=== PATIENT | female | born 1990 | race Caucasian/White ===

== ENCOUNTER → 2020-03-15 10:18 | Outpatient (CLI) | payer MEDICAID, SELFPAY | PROVIDERS: PCP Family Medicine; Visit Provider Nurse Practitioner Family | DX: Z03.818 Encounter for observation for suspected exposure to other biological agents ruled out (principal) | CPT/HCPCS: U0003 ==

== ENCOUNTER 2020-09-22 10:10 | Emergency (ER) | payer MEDICAID, SELFPAY ==
[2020-09-22 10:11] VITALS: BP 162/89; PULSE 98; RESP 16; TEMP 37.1; O2SAT 98; BMI 26.6
--- NOTE | 2020-09-22 10:40 | HMH.EDUTC ---
[facility] [place] Disposition Clinical Impression: Bronchitis Disposition: Home, Self-Care Condition on Discharge: Good Instructions: DI for Acute Bronchitis Additional Instructions: Return to clinic or f/u with PCP if not improving Prescriptions: Brompheniramine/Pseudoephed/Dm [Bromfed DM Cough Syrup 5mL] 5 ml PO Q4HP PRN 10 Days #180 ml PRN Reason: Cough Transmission Status: Pending to [place] [id number] predniSONE [Prednisone 20mg Tab] 20 mg PO BID 5 Days #10 tab Transmission Status: Pending to [place] [address] Albuterol Sulfate [Proair Hfa] 2 puffs IH Q4HP PRN 10 Days #1 hfa.[email or web address] PRN Reason: Wheezing Transmission Status: Pending to [place] [address] Azithromycin [Z-Bob 250mg Tab] 250 mg PO DIRECTED #6 tab Transmission Status: Pending to [place] [address] Referrals: Marciano Webb MD [Primary Care Provider] - Forms: Work/School Release Time of Disposition: 10:45 Medical Decision Making - Reg Inquiry Pt receiving controlled substance: No Vital Signs: 09/22/20 10:11 Temperature 98.7 F Temperature Source Oral Pulse Rate [Right] 98 H Respiratory Rate 16 Blood Pressure [Right Arm] 162/89 H Blood Pressure Mean [Right Arm] 113 Blood Pressure Source [Right Arm] Automatic Cuff Blood Pressure Position [Right Arm] Sitting 02 Sat by Pulse Oximetry 98 Oxygen Delivery Method Room Air Orders (Tests/Meds): ORDERS Category Date Time Status Covid-19 Nasal PCR ([facility]) Routine Lab 09/22/20 10:35 Ordered [facility] [place] HPI - General Stated complaint: cough, sore throat, soa Time Seen by Provider: 09/22/20 10:40 Mode of Arrival: Ambulatory Source of Information: Patient Limitations: No Limitations Description of Symptoms (Recalled from Triage Doc. by RN): cough, runny nose for the past two days HEENT Symptoms (Recalled from RN notes): Yes (cough, sore throat) Resp Symptoms (Recalled from RN notes): No Skin Symptoms (Recalled from RN notes): No MS Symptoms (Recalled from RN notes): No Functional Status (Recalled from RN notes): na - History of Present Illness Provider Complaint: Cough and congestion X 2 days. No fever. Denies ear pain or sore throat. Denies nausea or vomiting. Has had loose stools. Cough is productive. Does not smoke. Daughter has similar symptoms. No loss of taste or smell. No known exposure to COVID19. Onset (ago): day(s) (2) Location: chest Consistency: constant Relieving factors: none Exacerbating factors: none Associated symptoms: denies other symptoms, cough, malaise Treatments prior to arrival: none - Related Data Previous Rx's Medication Instructions Recorded Albuterol Sulfate [Proair Hfa] 2 puffs IH Q4HP PRN 10 Days #1 09/22/20 hfa.aer.ad Azithromycin [Z-Bob 250mg Tab] 250 mg PO DIRECTED #6 tab 09/22/20 Brompheniramine/Pseudoephed/Dm 5 ml PO Q4HP PRN 10 Days #180 ml 09/22/20 [Bromfed DM Cough Syrup 5mL] predniSONE [Prednisone 20mg 20 mg PO BID 5 Days #10 tab 09/22/20 Tab] Allergies Allergy/AdvReac Type Severity Reaction Status Date / Time No Known Allergies Allergy Verified 09/22/20 10:30 - Worker's Comp Is this a Worker's Comp case?: No [facility] History - Hepatitis A Screen Drug use history?: No High risk sexual behaviors?: No History of sexually transmitted infection?: No Currently employed?: No Childcare worker?: No Do you have indoor plumbing?: Yes Do you have electricity?: Yes Attestation statement:: This patient has been screened for Hepatitis A risk factors. I have reviewed the patient's past medical history: Yes ROS Obtained: Yes All systems reviewed & no additional complaints - Constitutional Constitutional: Reports malaise - ENT Ears, Nose, Mouth, and Throat: Reports nasal congestion, Reports sore throat - Respiratory Respiratory: Reports dyspnea, Reports pain with cough, Reports cough with sputum production - Gastrointestinal Gastrointestingal: Reports: loose stools Physical Exam - Ge
[2020-09-22 11:00] VITALS: BP 130/70; PULSE 70; RESP 16; TEMP 36.8; O2SAT 98
== END 2020-09-22 11:01 | disposition home or self-care (01) ==
PROVIDERS: Emergency Provider Physician Assistant; PCP Family Medicine
DX: Z20.822 Contact with and (suspected) exposure to COVID-19 (principal); J20.9 Acute bronchitis, unspecified; F17.210 Nicotine dependence, cigarettes, uncomplicated
CPT/HCPCS: 99202; G0463; U0003

== ENCOUNTER → 2020-10-05 15:17 | Outpatient (CLI) | payer MEDICAID, SELFPAY ==
[2020-10-05 15:39] LABS: Basophils # 0.1 K/mm3 (0-0.2); Basophils % 0.6 % (0.1-2.0); Eosinophils # 0.1 K/mm3 (0.0-0.4); Eosinophils % 0.7 % (0.1-12.0); Hematocrit 42.1 % (37.0-47.0); Hemoglobin 14.6 g/dL (12.2-16.2); Lymphocytes # 2.8 K/mm3 (0.7-4.5); Lymphocytes % 37.6 % (10-50); Mean Corpuscular HGB Conc 34.7 g/dL (31.8-35.4); Mean Corpuscular Hemoglobin 32.4 pg (27.0-31.2); Mean Corpuscular Volume 93.3 fl (81-99); Mean Platelet Volume 8.8 fl (7.4-10.4); Monocytes # 0.3 K/mm3 (0.1-1.0); Monocytes % 4.6 % (1.7-9.3); Neutrophils # 4.2 K/mm3 (1.8-7.8); Neutrophils % 56.5 % (37.0-80.0); Platelet Count 199 K/mm3 (142-424); Red Blood Count 4.52 M/mm3 (4.20-5.40); Red Cell Distribution Width 12.6 % (11.5-17.5); White Blood Count 7.4 K/mm3 (4.8-10.8)
[2020-10-05 16:19] LABS: Alanine Aminotransferase 20 U/L (12-78); Albumin Level 4.6 g/dl (3.5-5.0); Albumin/Globulin Ratio 1.8 (1.1-1.8); Alkaline Phosphatase 66 U/L (38-126); Anion Gap 12.1 mEq/L (5-15); Aspartate Amino Transferase 25 U/L (14-36); Bilirubin,Total 0.5 mg/dl (0.2-1.3); Blood Urea Nitrogen 7 mg/dl (7-17); Calcium 9.2 mg/dl (8.4-10.2); Carbon Dioxide 25 mmol/L (22.0-30.0); Chloride 108 mmol/L (98-107); Estimated Glomerular Filt Rate 99 ml/min (>60); GFR (African American) 120 ML/MIN (>60); Globulin 2.6 g/dL (1.3-3.2); Glucose 100 mg/dl (74-100); Potassium 4.1 mmoL/L (3.5-5.1); Sodium 141 mmol/L (136-145); Total Protein,Serum 7.2 g/dl (6.3-8.2)
[2020-10-05 16:34] LABS: Free T4 (Free Thyroxine) 1.72 ng/dl (0.78-2.19)
[2020-10-05 16:49] LABS: Thyroid Stimulating Hormone 1.51 uIU/mL (0.465-4.68)
== END ==
PROVIDERS: Visit Provider Nurse Practitioner Family
DX: E03.9 Hypothyroidism, unspecified (principal)
CPT/HCPCS: 36415; 80053; 84439; 84443; 85025

== ENCOUNTER 2021-01-04 16:26 | Emergency (ER) | payer OTHER, SELFPAY ==
[2021-01-04 16:30] VITALS: BP 143/75; PULSE 71; RESP 20; TEMP 36.9; O2SAT 100; BMI 26.6
[2021-01-04 16:34] VITALS: BMI 26.6
--- NOTE | 2021-01-04 16:34 | XR_ITS ---
PROCEDURE: XR HAND LT MIN 3V CLINICAL INDICATION: INJURY/WC Pain COMPARISON: No exams were available for comparison FINDINGS: No fracture or dislocation. No lytic or blastic change. There is normal mineralization. The joint spaces are well-preserved. No significant degenerative/arthritic changes. No erosive changes evident. Other findings:None. IMPRESSION: No acute findings. Dictated by: Pancho Mercedes MD 01/04/2021 17:25 Pancho Mercedes MD in [place] 01/04/2021 17:25
[2021-01-04 16:55] VITALS: BP 143/75; PULSE 71; RESP 20; TEMP 36.9; O2SAT 100
--- NOTE | 2021-01-04 17:45 | HMH.EDUTC ---
[facility] [place] Clinical Impression: Right hand pain Sprain of right hand Qualifiers: Encounter type: initial encounter Qualified Code(s): S63.91XA - Sprain of unspecified part of right wrist and hand, initial encounter Fall Qualifiers: Encounter type: initial encounter Qualified Code(s): W19.XXXA - Unspecified fall, initial encounter Facial contusion Qualifiers: Encounter type: initial encounter Qualified Code(s): S00.83XA - Contusion of other part of head, initial encounter Disposition: Home, Self-Care Condition on Discharge: Good Instructions: DI for Hand Injury Additional Instructions: Rest the extremity, apply ice for 15 minutes as tolerated three or four times per day, Elevate the extremity as tolerated while you are resting. Take ibuprofen for pain. I sent in a prescription to your pharmacy. Follow up with Dr. Evans (orthopedics). Sometimes there can be fractures that don't show up well on the first set of x-rays. So, you should follow up if you continue to have symptoms. I put in a referral but you need to call his office and schedule an appointment. Follow up with your regular doctor. GO TO THE ER FOR ANY WORSENING SYMPTOMS Prescriptions: Ibuprofen [Ibuprofen 600mg Tablet] 600 mg PO Q6HP PRN #30 tab PRN Reason: Mild Pain Transmission Status: Received by [facility] #[id number] Referrals: Maritza Lee APRN [Primary Care Provider] - Mian Evans MD [Staff Physician] - Time of Disposition: 17:55 Medical Decision Making - Medical Records Medical records reviewed: No: I reviewed the patient's medical records. - Reg Inquiry Pt receiving controlled substance: No Vital Signs: 01/04/21 16:30 01/04/21 16:55 Temperature 98.5 F 98.5 F Temperature Source Oral Pulse Rate 71 Pulse Rate [Right Brachial] 71 Respiratory Rate 20 20 Blood Pressure 143/75 H Blood Pressure [Right Arm] 143/75 H Blood Pressure Mean [Right Arm] 97 Blood Pressure Source [Right Arm] Automatic Cuff Blood Pressure Position [Right Arm] Sitting 02 Sat by Pulse Oximetry 100 Oxygen Delivery Method Room Air - Radiology Data #1 Image(s): Hand Image Reviewed: Yes I reviewed the patient's radiology image, Yes I have reviewed radiologist's interpretation Preliminary Findings: Normal/NAD, No Fracture Seen PROCEDURE: XR HAND LT MIN 3V CLINICAL INDICATION: INJURY/WC Pain COMPARISON: No exams were available for comparison FINDINGS: No fracture or dislocation. No lytic or blastic change. There is normal mineralization. The joint spaces are well-preserved. No significant degenerative/arthritic changes. No erosive changes evident. Other findings:None. IMPRESSION: No acute findings. Dictated by: Pancho Mercedes MD 01/04/2021 17:25 Pancho Mercedes MD in [place] 01/04/2021 17:25 [facility] [place] - General Stated complaint: WC 01/14@1300 left hand injury Time Seen by Provider: 01/04/21 17:46 Mode of Arrival: Ambulatory Source of Information: Patient Limitations: No Limitations Description of Symptoms (Recalled from Triage Doc. by RN): PATIENT STATES SHE WAS AT WORK TODAY WHEN SHE FELL AND LANDED ON LEFT HAND. C/O PAIN AND DECREASED ROM HEENT Symptoms (Recalled from RN notes): No Resp Symptoms (Recalled from RN notes): No Skin Symptoms (Recalled from RN notes): No MS Symptoms (Recalled from RN notes): Yes Functional Status (Recalled from RN notes): WNL - History of Present Illness Provider Complaint: She states that she was at work today and she tripped and fell. She came down on her left hand. She also hit the left side of her face on the ground. She denies any facial or head pain. She does have left hand pain that is worse when she bends her 4th and 5th finger. - Related Data Home Medications Medication Instructions Recorded Confirmed Fluoxetine HCl [Prozac 20mg 20 mg PO DAILY 01/04/21 01/04/21 Capsule] Levothyroxine Sodium 125 mcg PO DAILY 01/04/21 08
== END 2021-01-04 18:01 | disposition home or self-care (01) ==
PROVIDERS: Emergency Provider Nurse Practitioner Family; PCP Nurse Practitioner Family
DX: S63.92XA Sprain of unspecified part of left wrist and hand, initial encounter (principal); S00.83XA Contusion of other part of head, initial encounter; W01.0XXA Fall on same level from slipping, tripping and stumbling without subsequent striking against object, initial encounter; Y92.69 Other specified industrial and construction area as the place of occurrence of the external cause; Y99.0 Civilian activity done for income or pay
CPT/HCPCS: 73130; 99202; G0463

== ENCOUNTER → 2021-03-14 16:10 | Outpatient (CLI) | payer MEDICAID, SELFPAY ==
[2021-03-14 17:43] LABS: HCG,Quantitative 10595 mIU/ml (0-5.42)
== END ==
PROVIDERS: Visit Provider Obstetrics & Gynecology
DX: Z32.01 Encounter for pregnancy test, result positive (principal)
CPT/HCPCS: 36415; 84702

== ENCOUNTER → 2021-03-16 15:04 | Outpatient (CLI) | payer MEDICAID, SELFPAY ==
[2021-03-16 17:04] LABS: HCG,Quantitative 14672 mIU/ml (0-5.42)
== END ==
PROVIDERS: Visit Provider Obstetrics & Gynecology
DX: Z32.01 Encounter for pregnancy test, result positive (principal)
CPT/HCPCS: 36415; 84702

== ENCOUNTER → 2021-03-28 12:53 | Outpatient (CLI) | payer MEDICAID, SELFPAY ==
--- NOTE | 2021-03-28 12:53 | US_ITS ---
PROCEDURE: US OB <= 14 WEEKS FETUS CLINICAL INDICATION: Dates COMPARISON: No exams were available for comparison FINDINGS: An intrauterine gestational sac is present with a pole with a crown-rump length of 1.45cm correlating to gestational age of 7weeks 6days. heart tones are present with an FHR of 153bpm. Yolk sac is noted. IMPRESSION: Live IUP at 7 weeks 6 days. Estimated due date by Ultrasound is 11/08/2021 Dictated by: Pancho Mercedes MD 04/02/2021 07:58 Pancho Mercedes MD in [place] 04/02/2021 07:58
== END ==
PROVIDERS: PCP Nurse Practitioner Family; Visit Provider Obstetrics & Gynecology
DX: Z34.90 Encounter for supervision of normal pregnancy, unspecified, unspecified trimester (principal)
CPT/HCPCS: 76801

== ENCOUNTER → 2021-04-24 15:54 | Outpatient (CLI) | payer MEDICAID, SELFPAY ==
[2021-04-24 16:47] LABS: Basophils % 0.5 % (0.1-2.0); Eosinophils % 0.2 % (0.1-12.0); Hematocrit 37.2 % (37.0-47.0); Hemoglobin 13.1 g/dL (12.2-16.2); Lymphocytes # 2.4 K/mm3 (0.7-4.5); Lymphocytes % 36.1 % (10-50); Mean Corpuscular HGB Conc 35.3 g/dL (31.8-35.4); Mean Corpuscular Hemoglobin 33.5 pg (27.0-31.2); Mean Corpuscular Volume 94.8 fl (81-99); Mean Platelet Volume 9.2 fl (7.4-10.4); Monocytes # 0.3 K/mm3 (0.1-1.0); Monocytes % 4.3 % (1.7-9.3); Neutrophils # 3.8 K/mm3 (1.8-7.8); Neutrophils % 58.9 % (37.0-80.0); Platelet Count 237 K/mm3 (142-424); Red Blood Count 3.92 M/mm3 (4.20-5.40); Red Cell Distribution Width 12.6 % (11.5-17.5); White Blood Count 6.5 K/mm3 (4.8-10.8)
[2021-04-26 07:01] LABS: HIV Screen 4th Generation wRfx Non Reactive (Non Reactive); Hepatitis B Surface Antigen Negative (Negative); Hepatitis C Antibody <0.1 s/co ratio (0.0-0.9)
[2021-04-26 09:26] LABS: HSV 1 IgG, Type Spec >62.20 index (0.00-0.90); HSV 2 IgG, Type Spec <0.91 index (0.00-0.90); Rubella Antibodies, IgG 1.73 index (Immune >0.99)
[2021-04-26 10:11] LABS: Rapid Plasma Reagin Ab Titer Non Reactive (NonRea<1:1)
== END ==
PROVIDERS: Visit Provider Nurse Practitioner Obstetrics & Gynecology
DX: Z34.90 Encounter for supervision of normal pregnancy, unspecified, unspecified trimester (principal); Z3A.08 8 weeks gestation of pregnancy
CPT/HCPCS: 36415; 85025; 86592; 86695; 86703; 86762; 86790; 86850; 87340; 87380; G0432

== ENCOUNTER 2021-05-13 11:08 | Emergency (ER) | payer MEDICAID, SELFPAY ==
[2021-05-13] VITALS (8 sets, daily range): BP systolic 103–115; BP diastolic 63–74; PULSE 61–92; RESP 15–17; TEMP 36.8; O2SAT 97–100; BMI 21.9; BMI 26.6
[2021-05-13 11:38] LABS: Appearance,Urine SL CLOUDY (Clear); Bilirubin,Urine Negative (Negative); Blood, Urine Negative (Negative); Color,Urine YELLOW (Yellow); Glucose,Urine (UA) Negative (Negative); Ketones,Urine Negative (Negative); Leukocyte Esterase,Urine Negative (Negative); Microscopic, Urine URINE MICROSCOPIC (MICROSCOPIC); Nitrate,Urine Negative (Negative); Protein,Urine Negative (Negative); Specific Gravity, Urine 1.025 (1.005-1.030); Urobilinogen,Urine 0.2 EU/dl (0.2)
[2021-05-13 11:53] LABS: Chloride 107 mmol/L (98-107); Potassium 3.6 mmoL/L (3.5-5.1); Sodium 137 mmol/L (136-145)
[2021-05-13 11:54] LABS: Basophils # 0.1 K/mm3 (0-0.2); Eosinophils # 0.2 K/mm3 (0.0-0.4); Eosinophils % 2.4 % (0.1-12.0); Hemoglobin 12.9 g/dL (12.2-16.2); Lymphocytes # 2.2 K/mm3 (0.7-4.5); Lymphocytes % 24.5 % (10-50); Mean Corpuscular HGB Conc 33.1 g/dL (31.8-35.4); Mean Corpuscular Hemoglobin 33.6 pg (27.0-31.2); Mean Corpuscular Volume 101.5 fl (81-99); Mean Platelet Volume 7.8 fl (7.4-10.4); Monocytes # 0.5 K/mm3 (0.1-1.0); Monocytes % 5.2 % (1.7-9.3); Neutrophils % 66.9 % (37.0-80.0); Platelet Count 293 K/mm3 (142-424); Red Blood Count 3.85 M/mm3 (4.20-5.40); Red Cell Distribution Width 13.3 % (11.5-17.5)
[2021-05-13 11:55] LABS: Blood Urea Nitrogen 6 mg/dl (7-17); Creatinine Clearance Estimated 250 mL/min (50-200); Estimated Glomerular Filt Rate 187 ml/min (>60); GFR (African American) 227 ML/MIN (>60)
[2021-05-13 11:56] LABS: Alanine Aminotransferase 12 U/L (12-78); Albumin Level 4.2 g/dl (3.5-5.0); Albumin/Globulin Ratio 1.5 (1.1-1.8); Alkaline Phosphatase 57 U/L (38-126); Anion Gap 11.6 mEq/L (5-15); Aspartate Amino Transferase 30 U/L (14-36); Bilirubin,Total 0.3 mg/dl (0.2-1.3); Calcium 8.7 mg/dl (8.4-10.2); Carbon Dioxide 22 mmol/L (22.0-30.0); Globulin 2.8 g/dL (1.3-3.2); Glucose 85 mg/dl (74-100)
[2021-05-13 11:57] LABS: Bacteria,Urine 1+ /lpf; RBC,Urine Occasional #/hpf (0-3); WBC,Urine Occasional #/hpf (0-3)
[2021-05-13 12:13] LABS: HCG,Quantitative 13714 mIU/ml (0-5.42)
[2021-05-13 12:16] LABS: Coronavirus 19, PCR Not Detected (NotDetected); Influenza A, PCR Not Detected (NotDetected); Influenza B, PCR Not Detected (NotDetected)
--- NOTE | 2021-05-13 13:15 | HMH.EDNVD ---
ED Disposition Clinical Impression: Emesis, UTI (urinary tract infection) Disposition: Home, Self-Care Condition on Discharge: Good Instructions: Urinary Tract Infection, Hyperemesis Gravidarum, DI for Diarrhea and Traveler's Diarrhea -- Adult, DI for Diarrhea and Traveler's Diarrhea -- Child, DI for Nausea -- Adult, DI for Nausea -- Child Additional Instructions: Please follow-up with your primary care physician in 2 to 3 days for further management. You have been prescribed Keflex to take as prescribed for your urinary tract infection. Please take the promethazine as prescribed for your nausea and vomiting. Please return back to the emergency department for any concerning symptoms such as abdominal pain, inability to eat and drink or worsening nausea and vomiting. Prescriptions: cephALEXin [Keflex 750mg Cap] 750 mg PO Q12H #14 cap Transmission Status: Received by [facility] # Promethazine HCl 12.5 mg PO Q8 #30 tab Transmission Status: Received by [facility] #[id number] Referrals: Maritza Lee APRN [Primary Care Provider] - Forms: Work/School Release - Critical Care Critical Care Time: No Attestation: On 05/13/21, the high probability of a clinically significant, sudden or life threatening deterioration of the following system(s) required my full and direct attention, intervention and personal management. The time I documented below is in addition to time spent performing reported procedures but includes the following listed in this critical care notation. Medical Decision Making - Medical Records Medical records reviewed: Yes: I reviewed the patient's medical records. - Reg Inquiry Pt receiving controlled substance: No Vital Signs: 05/13/21 11:09 05/13/21 11:21 05/13/21 11:52 Temperature 98.2 F Temperature Source Oral Pulse Rate 68 74 Pulse Rate [Right Radial] 92 H Respiratory Rate 16 16 16 Blood Pressure 115/74 111/73 Blood Pressure [Right Arm] 115/74 Blood Pressure Mean 84 82 Blood Pressure Mean [Right Arm] 87 Blood Pressure Source [Right Arm] Automatic Cuff Blood Pressure Position [Right Arm] Sitting 02 Sat by Pulse Oximetry 98 97 100 Oxygen Delivery Method Room Air 05/13/21 12:00 05/13/21 12:30 05/13/21 13:00 Temperature Temperature Source Pulse Rate 61 61 68 Pulse Rate [Right Radial] Respiratory Rate 17 15 Blood Pressure 103/64 L 109/68 L 113/68 Blood Pressure [Right Arm] Blood Pressure Mean 79 82 Blood Pressure Mean [Right Arm] Blood Pressure Source [Right Arm] Blood Pressure Position [Right Arm] 02 Sat by Pulse Oximetry 100 99 100 Oxygen Delivery Method 05/13/21 13:30 05/13/21 14:05 Temperature 98.2 F Temperature Source Pulse Rate 65 65 Pulse Rate [Right Radial] Respiratory Rate 17 17 Blood Pressure 106/63 L 106/63 L Blood Pressure [Right Arm] Blood Pressure Mean 76 Blood Pressure Mean [Right Arm] Blood Pressure Source [Right Arm] Blood Pressure Position [Right Arm] 02 Sat by Pulse Oximetry 99 Oxygen Delivery Method Room Air - Lab Data Lab results reviewed: Yes: I reviewed the patient's lab results. Lab Results 05/13/21 11:20: Urine Color Yellow, Urine Appearance Sl cloudy, Urine pH 6.0, Ur Specific [place] 1.025, Urine Protein Negative, Urine Glucose (UA) Negative, Urine Ketones Negative, Urine Blood Negative, Urine Nitrate Negative, Urine Bilirubin Negative, Urine Urobilinogen 0.2, Ur Leukocyte Esterase Negative, Urine RBC Occasional, Urine WBC Occasional, Ur Squamous Epith Cells 3-5, Urine Bacteria 1+ 05/13/21 11:30: WBC 9.0, RBC 3.85 L, Hgb 12.9, Hct 39.0, MCV 101.5 H, MCH 33.6 H, MCHC 33.1, RDW 13.3, Plt Count 293, MPV 7.8, Neut % (Auto) 66.9, Lymph % (Auto) 24.5, [place] % (Auto) 5.2, Eos % (Auto) 2.4, Baso % (Auto) 1.0, Neut # (Auto) 6.0, Lymph # (Auto) 2.2, [place] # (Auto) 0.5, Eos # (Auto) 0.2, Baso # (Auto) 0.1 05/13/21 11:30: Sodium 137, Potassium 3.6, Chloride 107, Carbon Dioxide
== END 2021-05-13 14:05 | disposition home or self-care (01) ==
PROVIDERS: Emergency Provider Student in an Organized Health Care Education/Training Program; PCP Nurse Practitioner Family
DX: O23.12 Infections of bladder in pregnancy, second trimester (principal); Z3A.14 14 weeks gestation of pregnancy; O21.0 Mild hyperemesis gravidarum
CPT/HCPCS: 80053; 81001; 84702; 85025; 96365; 96375; 99283; C9803; U0003; U0005

== ENCOUNTER 2021-05-27 18:39 | Emergency (ER) | payer MEDICAID, SELFPAY ==
[2021-05-27 19:00] VITALS: BP 126/78; PULSE 79; RESP 21; TEMP 37; O2SAT 99; BMI 25.5
[2021-05-27 19:40] LABS: UTC Influenza A Antigen Negative (Negative); UTC Strep Screen (Rapid) Negative (Negative)
[2021-05-27 19:41] LABS: UTC Influenza B Antigen Negative (Negative)
--- NOTE | 2021-05-27 19:45 | HMH.EDUTC ---
[facility] [place] Disposition Clinical Impression: Upper respiratory infection, viral Disposition: Home, Self-Care Condition on Discharge: Good Instructions: DI for Viral Upper Respiratory Infection -- Adult Additional Instructions: covid swab was sent to lab, call later today for results. self isolate until test results are known to be negative No sign of a bacterial infection. Likely viral. Viruses can take 7-14 days to run their course. Nasal saline and bulb syringe or nose Kirsten to remove nasal drainage to help with nasal congestion. Hard to eat, drink, sleep with nasal congestion so important to keep this cleaned out. Monitor temp. Tylenol or Motrin as needed for pain or fever Encourage fluids, water, Gatorade, Powerade, Pedialyte if /toddler/child Warm salt water gargles Warm fluids Sore throat lozenges Sleep elevated Humidifier/vaporizer Follow-up immediately for new or worsening symptoms or no noticeable improvement over the next 48-72 hours. Referrals: Maritza Lee APRN [Primary Care Provider] - Time of Disposition: 19:47 Medical Decision Making - Reg Inquiry Pt receiving controlled substance: No Vital Signs: 05/27/21 19:00 Temperature 98.6 F Temperature Source Oral Pulse Rate [Right Brachial] 79 Respiratory Rate 21 Blood Pressure [Right Arm] 126/78 Blood Pressure Mean [Right Arm] 94 Blood Pressure Source [Right Arm] Automatic Cuff Blood Pressure Position [Right Arm] Sitting 02 Sat by Pulse Oximetry 99 Oxygen Delivery Method Room Air - Lab Data Lab Results 05/27/21 19:10: Influenza Type A Ag Negative, Influenza Type B Ag Negative 05/27/21 19:10: Strep Scn Rapid Clinic Negative Orders (Tests/Meds): ORDERS Category Date Time Status Covid-19 Nasal PCR ([facility]) Routine Lab 05/27/21 19:10 Received Strep Screen Confirmation Stat Micro 05/27/21 19:10 Received [facility] [place] HPI - General Chief complaint: Urgent [facility] Stated complaint: covid test,cough Time Seen by Provider: 05/27/21 19:45 Mode of Arrival: Ambulatory Source of Information: Patient Limitations: No Limitations Description of Symptoms (Recalled from Triage Doc. by RN): PATIENT C/O COUGH, SORE THROAT, AND HEADACHE X 3 DAYS HEENT Symptoms (Recalled from RN notes): Yes Resp Symptoms (Recalled from RN notes): Yes Skin Symptoms (Recalled from RN notes): No MS Symptoms (Recalled from RN notes): No Functional Status (Recalled from RN notes): WNL - History of Present Illness Provider Complaint: 31 yr old female presnts for cough and congestion, pt is 15 weeks - Related Data Home Medications Medication Instructions Recorded Confirmed Fluoxetine HCl [Prozac 20mg 20 mg PO DAILY 01/04/21 05/02/21 Capsule] Levothyroxine Sodium 125 mcg PO DAILY 01/04/21 05/02/21 [Levothyroxine 125mcg (0.125mg) Tab] Previous Rx's Medication Instructions Recorded Ibuprofen [Ibuprofen 600mg 600 mg PO Q6HP PRN #30 tab 01/04/21 Tablet] promethazine 12.5 mg tablet 12.5 mg PO Q4-6H PRN #30 tab 04/03/21 Promethazine HCl 12.5 mg PO Q8 #30 tab 05/13/21 cephALEXin [Keflex 750mg Cap] 750 mg PO Q12H #14 cap 05/13/21 Allergies Allergy/AdvReac Type Severity Reaction Status Date / Time No Known Allergies Allergy Verified 05/02/21 15:25 - Worker's Comp Is this a Worker's Comp case?: No [facility] History - Hepatitis A Screen Drug use history?: No High risk sexual behaviors?: No History of sexually transmitted infection?: No Currently employed?: No Childcare worker?: No Do you have indoor plumbing?: Yes Do you have electricity?: Yes Attestation statement:: This patient has been screened for Hepatitis A risk factors. I have reviewed the patient's past medical history: Yes Other Surgeries: Yes: Cholecystectomy, Thyroidectomy Amputation: No Fractures: No - Social History Smoking Status: Never smoker Alcohol Intake: never Occupational Status: other Family Hx:: No significant family histo
[2021-05-27 19:57] VITALS: BP 126/78; PULSE 79; RESP 21; TEMP 37; O2SAT 99
== END 2021-05-27 19:59 | disposition home or self-care (01) ==
PROVIDERS: Emergency Provider Nurse Practitioner Family; PCP Nurse Practitioner Family
DX: J06.9 Acute upper respiratory infection, unspecified (principal); Z3A.15 15 weeks gestation of pregnancy
CPT/HCPCS: 87804; 87880; 99203; C9803; G0463; U0003; U0005

== ENCOUNTER → 2021-06-06 15:53 | Outpatient (CLI) | payer MEDICAID, SELFPAY | PROVIDERS: Visit Provider Nurse Practitioner Obstetrics & Gynecology | DX: O28.3 Abnormal ultrasonic finding on antenatal screening of mother (principal); Z31.430 Encounter of female for testing for genetic disease carrier status for procreative management; Z36.0 Encounter for antenatal screening for chromosomal anomalies | CPT/HCPCS: 36415 ==

== ENCOUNTER → 2021-06-20 12:49 | Outpatient (CLI) | payer MEDICAID, SELFPAY ==
--- NOTE | 2021-06-20 12:50 | US_ITS ---
FINAL REPORT CLINICAL HISTORY: US OB Complete 20wk+ Anatomy Scan FINDINGS: There is a single live intrauterine gestation. Presentation is cephalic. The cervix is closed and measures 4.1 cm. Placenta is anterior. Three-vessel cord with satisfactory umbilical cord insertion. Four-chamber heart is noted. brain and ventricles are unremarkable. Chest and diaphragm are unremarkable. ABDOMEN: Both kidneys are unremarkable. Stomach is unremarkable. SPINE: No anomalies identified. Both arms and legs noted. AMNIOTIC FLUID: Appropriate amount. MEASUREMENTS: ULTRASOUND AGE: 19 weeks 6 days. GESTATION AGE: 19 weeks 6 days. ESTIMATED WEIGHT: 313 g GROWTH PERCENTILE: 41% BPD: 4.7 cm consistent with 20 weeks 2 days. OFD: 5.9 cm consistent with 20 weeks 2 days HC: 16.7 cm consistent with 19 weeks 3 days. AC: 14.5 cm consistent with 19 weeks 6 days. FL: 312 cm consistent with 19 weeks 6 days. CEREBELLUM: 1.9 cm consistent with 20 weeks 0 days. HC/AC: 1.16 CI: 80% FL/BPD: 67% FL/AC: 22% IMPRESSION: Single living IUP with an ultrasound age of 19 weeks 6 days. No anomalies noted. Reviewed, Interpreted and Dictated by Wisam Demarco III, MD Transcribed by Sihra Aguirre Authenticated by Wisam Demarco III, MD on 06/20/2021 04:57:[address] [facility]
== END ==
PROVIDERS: PCP Nurse Practitioner Family; Visit Provider Nurse Practitioner Obstetrics & Gynecology
DX: Z36.0 Encounter for antenatal screening for chromosomal anomalies (principal)
CPT/HCPCS: 76811

== ENCOUNTER → 2021-08-08 09:10 | Outpatient (CLI) | payer MEDICAID, SELFPAY ==
[2021-08-08 11:23] LABS: Glucose 1 Hour 96 mg/dL (74-100); Glucose,Fasting 80 mg/dl (74-100)
== END ==
PROVIDERS: Visit Provider Nurse Practitioner Obstetrics & Gynecology
DX: Z34.90 Encounter for supervision of normal pregnancy, unspecified, unspecified trimester (principal)
CPT/HCPCS: 36415; 82951

== ENCOUNTER → 2021-09-10 11:53 | Outpatient (CLI) | payer MEDICAID, SELFPAY ==
[2021-09-10 12:17] LABS: Basophils # 0.1 K/mm3 (0-0.2); Basophils % 2.2 % (0.1-2.0); Eosinophils % 0.4 % (0.1-12.0); Hemoglobin 10.6 g/dL (12.2-16.2); Lymphocytes # 1.8 K/mm3 (0.7-4.5); Lymphocytes % 41.5 % (10-50); Mean Corpuscular HGB Conc 34.3 g/dL (31.8-35.4); Mean Corpuscular Hemoglobin 33.7 pg (27.0-31.2); Mean Corpuscular Volume 98.2 fl (81-99); Mean Platelet Volume 9.2 fl (7.4-10.4); Monocytes # 0.3 K/mm3 (0.1-1.0); Monocytes % 5.7 % (1.7-9.3); Neutrophils # 2.2 K/mm3 (1.8-7.8); Neutrophils % 50.3 % (37.0-80.0); Platelet Count 191 K/mm3 (142-424); Red Blood Count 3.16 M/mm3 (4.20-5.40); Red Cell Distribution Width 13.9 % (11.5-17.5); White Blood Count 4.4 K/mm3 (4.8-10.8)
[2021-09-10 13:06] LABS: Free Thyroxine Index 3.2 ug/dL (5.93-13.13); T4 (Thyroxine) 17.7 ug/dl (5.53-11.0); Triiodothryronine (T3) Uptake 18 % (23.5-40.5)
[2021-09-10 13:17] LABS: Alanine Aminotransferase 23 U/L (12-78); Albumin Level 3.5 g/dl (3.5-5.0); Albumin/Globulin Ratio 1.3 (1.1-1.8); Alkaline Phosphatase 132 U/L (38-126); Anion Gap 11.7 mEq/L (5-15); Aspartate Amino Transferase 32 U/L (14-36); Bilirubin,Total 0.5 mg/dl (0.2-1.3); Blood Urea Nitrogen 4 mg/dl (7-17); Calcium 8.1 mg/dl (8.4-10.2); Carbon Dioxide 18 mmol/L (22.0-30.0); Chloride 109 mmol/L (98-107); Estimated Glomerular Filt Rate 187 ml/min (>60); GFR (African American) 227 ML/MIN (>60); Globulin 2.8 g/dL (1.3-3.2); Glucose 87 mg/dl (74-100); Potassium 3.7 mmoL/L (3.5-5.1); Sodium 135 mmol/L (136-145); Total Protein,Serum 6.3 g/dl (6.3-8.2)
[2021-09-10 13:20] LABS: Thyroid Stimulating Hormone 7.92 uIU/mL (0.465-4.68)
== END ==
PROVIDERS: Visit Provider Nurse Practitioner Obstetrics & Gynecology
DX: Z34.90 Encounter for supervision of normal pregnancy, unspecified, unspecified trimester (principal); Z3A.31 31 weeks gestation of pregnancy
CPT/HCPCS: 36415; 80053; 84436; 84443; 84479; 85025

== ENCOUNTER → 2021-09-26 11:44 | Outpatient (CLI) | payer MEDICAID, SELFPAY ==
[2021-09-26 14:02] LABS: Triiodothryronine (T3) Uptake 18 % (23.5-40.5)
[2021-09-26 14:03] LABS: Free Thyroxine Index 2.6 ug/dL (5.93-13.13); T4 (Thyroxine) 14.4 ug/dl (5.53-11.0)
== END ==
PROVIDERS: PCP Nurse Practitioner Family; Visit Provider Nurse Practitioner Obstetrics & Gynecology
DX: E05.90 Thyrotoxicosis, unspecified without thyrotoxic crisis or storm (principal); O99.280 Endocrine, nutritional and metabolic diseases complicating pregnancy, unspecified trimester
CPT/HCPCS: 36415; 84436; 84443; 84479

== ENCOUNTER → 2021-10-02 13:21 | Outpatient (CLI) | payer MEDICAID, SELFPAY ==
--- NOTE | 2021-10-02 13:23 | US_ITS ---
FINAL REPORT CLINICAL HISTORY: LGA FINDINGS: There is a single live intrauterine gestation. Presentation is breech. The cervix is closed and measures 5.84 cm. Placenta is anterior, grade 1. Cardiac activity is confirmed at 127 bpm. Fetus is active. Three-vessel cord with satisfactory umbilical cord insertion. Four-chamber heart is noted. Chest and diaphragm are unremarkable. ABDOMEN: Both kidneys are unremarkable. Stomach is unremarkable. WINSTON: 13.7 cm MEASUREMENTS: ULTRASOUND AGE: 37 weeks 1 days. GESTATION AGE: 35 weeks 1 days. ESTIMATED WEIGHT: 3098 g GROWTH PERCENTILE: 92% BPD: 9.1 cm corresponding with 37 weeks 0 days. OFD: 12 cm HC: 33.4 cm corresponding with 38 weeks 2 days. AC: 33.8 cm corresponding with 37 weeks 5 days. FL: 6.8 cm corresponding with 35 weeks 1 days. HC/AC: 0.99 CI: 76% FL/BPD: 75% FL/AC: 20% BREATHIN MOVEMENT: 2 TONE: 2 FLUID VOLUME: 2 BPP SCORE: 8 IMPRESSION: Single living IUP with an ultrasound age of 37 weeks 1 days. BPP SCORE: 8/8 Reviewed, Interpreted and Dictated by Wisam Demarco III, MD Transcribed by Rosemarie Chapman Authenticated by Wisam Demarco III, MD on 10/02/2021 02:59:[address] [facility]
== END ==
PROVIDERS: PCP Nurse Practitioner Family; Visit Provider Nurse Practitioner Obstetrics & Gynecology
DX: O36.60X0 Maternal care for excessive fetal growth, unspecified trimester, not applicable or unspecified (principal)
CPT/HCPCS: 76816; 76819

== ENCOUNTER → 2021-10-16 15:35 | Outpatient (CLI) | payer MEDICAID, SELFPAY | PROVIDERS: Visit Provider Nurse Practitioner Obstetrics & Gynecology | DX: Z34.90 Encounter for supervision of normal pregnancy, unspecified, unspecified trimester (principal) | CPT/HCPCS: 86403 ==

== ENCOUNTER → 2021-10-31 14:07 | Outpatient (CLI) | payer MEDICAID, SELFPAY ==
[2021-10-31 15:34] LABS: Alanine Aminotransferase 27 U/L (12-78); Albumin Level 3.4 g/dl (3.5-5.0); Alkaline Phosphatase 214 U/L (38-126); Aspartate Amino Transferase 43 U/L (14-36); Bilirubin,Indirect 0.6 mg/dL (0.0-0.9); Bilirubin,Total 0.6 mg/dl (0.2-1.3); Bilirubin,Unconjugated 0.6 mg/dL (0.0-1.1); Total Protein,Serum 6.2 g/dl (6.3-8.2)
== END ==
PROVIDERS: PCP Nurse Practitioner Family; Visit Provider Nurse Practitioner Obstetrics & Gynecology
DX: Z34.90 Encounter for supervision of normal pregnancy, unspecified, unspecified trimester (principal); Z3A.38 38 weeks gestation of pregnancy
CPT/HCPCS: 36415; 80076

== ENCOUNTER 2021-11-05 04:50 | Inpatient (IN) | payer MEDICAID, SELFPAY ==
[2021-11-05 04:53] VITALS: BMI 29.9
[2021-11-05 05:58] LABS: Microscopic, Urine URINE MICROSCOPIC (MICROSCOPIC)
[2021-11-05 05:58] LABS: Influenza A, PCR Not Detected (NotDetected); Influenza B, PCR Not Detected (NotDetected)
[2021-11-05 06:07] LABS: Appearance,Urine CLEAR (Clear); Bilirubin,Urine Negative (Negative); Blood, Urine Negative (Negative); Color,Urine YELLOW (Yellow); Glucose,Urine (UA) Negative (Negative); Ketones,Urine Negative (Negative); Leukocyte Esterase,Urine Negative (Negative); Nitrate,Urine Negative (Negative); Protein,Urine Negative (Negative)
[2021-11-05 06:24] LABS: Amphetamine/Metha Screen,Urine Negative ng/ml (<1000)
[2021-11-05 06:25] LABS: Barbiturates Screen,Urine Negative ng/ml (<200); Benzodiazepines Screen,Urine Negative ng/ml (<200)
[2021-11-05 06:26] LABS: Cannabinoid Screen,Urine Negative ng/ml (<50); Cocaine Screen,Urine Negative ng/ml (<300)
[2021-11-05 06:27] LABS: Methadone Screen,Urine Negative ng/ml (<300)
[2021-11-05 06:28] LABS: Bacteria,Urine 1+ /lpf; Opiate Screen,Urine Negative ng/ml (<300); Phencyclidine Screen,Urine Negative ng/ml (<25); RBC,Urine Occasional #/hpf (0-3); WBC,Urine Occasional #/hpf (0-3)
[2021-11-05 06:36] LABS: Basophils # 0.1 K/mm3 (0-0.2); Eosinophils % 0.6 % (0.1-12.0); Hematocrit 36.2 % (37.0-47.0); Lymphocytes # 1.9 K/mm3 (0.7-4.5); Lymphocytes % 37.1 % (10-50); Mean Corpuscular HGB Conc 33.3 g/dL (31.8-35.4); Mean Corpuscular Hemoglobin 32.9 pg (27.0-31.2); Mean Corpuscular Volume 98.8 fl (81-99); Monocytes # 0.3 K/mm3 (0.1-1.0); Monocytes % 5.8 % (1.7-9.3); Neutrophils # 2.8 K/mm3 (1.8-7.8); Neutrophils % 55.5 % (37.0-80.0); Platelet Count 189 K/mm3 (142-424); Red Blood Count 3.66 M/mm3 (4.20-5.40); Red Cell Distribution Width 15.3 % (11.5-17.5); White Blood Count 5.1 K/mm3 (4.8-10.8)
[2021-11-05 06:47] LABS: Coronavirus 19, PCR Detected (NotDetected)
--- NOTE | 2021-11-05 07:11 | HMH.PHAINT ---
MEDICATION RECONCILIATION COMPLETED ON PATIENT USING EXTERNAL FILL HISTORY FROM PHARMACY. -XIMENA LARSON, CHARLINED
[2021-11-05 07:53] VITALS: BP 119/70; PULSE 70; RESP 18; TEMP 36.6; O2SAT 97
[2021-11-05 08:19] VITALS: BP 119/70; PULSE 70; RESP 18; TEMP 36.6; O2SAT 97
--- NOTE | 2021-11-05 09:05 | HMH.LABNOT ---
Labor Note - Subjective: Date: 11/05/21 Time: 09:05 regular contraction - Objective: NST:: Reactive Contractions:: every 2-3 minutes Cervical Dilation:: 2 Effacement:: 50% Station: -2 Membranes: artificially ruptured Comment:: I ruptured her membranes and there was minimal clear fluid. - Fetus: Monitoring?: Yes monitoring type:: External - Assessment: Labor progressing?: Yes Cephalopelvic disproportion?: No Patient Problems: All Active Problems Emesis (Acute) UTI (urinary tract infection) (Acute) Upper respiratory infection, viral (Acute) (Acute) Bronchitis (Acute) Sprain of right hand (Acute) Fall (Acute) Facial contusion (Acute) Right hand pain (Acute) - Plan: Anesthesia for epidural?: Yes Continue to labor down?: Yes Plan for ?: No Continue to monitor?: Yes Start pushing?: No
--- NOTE | 2021-11-05 09:06 | HMH.OBAPHP ---
OB - H&P: HPI Antepartum - History of Present Illness Chief complaint: Term , previous vaginal deliveries, COVID-positive History of present illness: She is a 31-year-old 4 para 2 at 39 and 5 weeks gestational age. She had COVID a little over a week ago. She still continues to be positive but she is now asymptomatic. As result of that we have elected to induce her labor at term. - History of Present Criteria for establishing EDC:: LMP confirmed by 1st trimester US care: good care Ultrasounds: normal 1st trimester US, normal mid trimester US Obstetrical complications: none Medical complications: other - Labs Blood type: A (+) positive Rubella: immune RPR/VDRL: nonreactive GBS status: negative HBsAG: negative [facility] History I have reviewed the patient's past medical history: Yes *Have you ever received a pneumonia vaccine?: No *Have you received a flu vaccine this season?: No Other Surgeries: Yes: Cholecystectomy, Thyroidectomy. No: Amputation: No Fractures: No - *Social History Smoking Status: Never smoker Alcohol Intake: never *Occupational Status:: unemployed *Travel in the last 8 weeks: None Family Hx:: No significant family history Para: 2 Review of Systems - Review of Systems Review of systems:: pertinent systems reviewed and negative unless documented below Meds Home Medications Medication Instructions Recorded Confirmed Type Fluoxetine HCl [Prozac 20mg 20 mg PO DAILY 01/04/21 11/05/21 History Capsule] ondansetron 4 mg disintegrating 4 mg PO TIDP PRN tab 10/31/21 11/05/21 History tablet Levothyroxine Sodium 125 mcg PO DAILY 11/05/21 11/05/21 History [Levothyroxine 125mcg (0.125mg) Tab] hydrOXYzine pamoate [Vistaril] 25 mg PO QID 11/05/21 11/05/21 History Allergies Allergy/AdvReac Type Severity Reaction Status Date / Time No Known Allergies Allergy Verified 10/31/21 13:36 OB - H&P: Exam - Physical Exam Vital signs: Temp Pulse Resp BP Pulse Ox 97.8 F 70 18 119/70 97 11/05/21 08:19 11/05/21 08:19 11/05/21 08:19 11/05/21 08:19 11/05/21 08:19 - Constitutional no acute distress - Routine HEENT Exam Head: Present: normocephalic Eye: Present: EOMI, PERRL ENT: Present: mucous membranes moist - Routine Neck Exam Present: supple, full ROM - Routine Respiratory Exam Absent: accessory muscle use (good air entry bilaterally), respiratory distress, wheezes, crackles - Routine Cardiovascular Exam Present: RRR. Absent: murmur - Routine Abdominal Exam Present: soft, normoactive bowel sounds. Absent: tenderness, distended, guarding - Routine Rectal Exam Patient deferred: visual exam, digital exam - Routine Exam Patient deferred: external exam, groin exam, perineal exam - Routine Extremities Exam Present: full ROM. Absent: cyanosis, edema - Routine Skin Exam Present: intact. Absent: cyanosis - Routine Neurological Exam Present: alert, oriented X3 - Routine Psychiatric Exam Present: normal affect OB - Results - Labs Labs: Short CBC 11/05/21 Range/Units 05:25 WBC 5.1 (4.8-10.8) K/mm3 Hgb 12.0 L (12.2-16.2) g/dL Hct 36.2 L (37.0-47.0) % Plt Count 189 (142-424) K/mm3 Urine 11/05/21 Range/Units 05:15 Urine Color Yellow (Yellow) Urine Appearance Clear (Clear) Urine pH 7.0 (5.0-8.5) Ur Specific [place] 1.010 (1.005-1.030) Urine Protein Negative (Negative) Urine Glucose (UA) Negative (Negative) OB - A/P Antepartum (1) Real time reverse transcriptase PCR positive for COVID-19 virus Status: Acute (2) Normal delivery at term Status: Acute - Additional Plan Planning to breastfeed?: Yes Plan: induction Additional Information:: She is having regular contractions. I ruptured her membranes. There was minimal clear fluid.
--- NOTE | 2021-11-05 11:42 | HMH.ANESCL ---
[facility] Anesthesia Checklist - Patient Identification Patient Identification: Arm Band - Structural Data Admitted From: Home Planned Operative Procedure/s: Labor Epidural Consent for Planned Operative Procedure(s) Verified: Yes Verified Documents: Surgical Consent, History and Physical - NPO Status Verified Time NPO: 00:00 - Additional verifications Anesthesia Reactions: No - Airway Assessment C-Spine Mobility Assessed: Yes TMJ Mobility Assessed: Yes Dentition: Good Dentition - Neurological Assessment Level of Consciousness: Awake, Alert - Anesthesia Plan Anesthesia Risk discussed: Yes Anesthesia Plan: Verified ASA Class: II Anesthesia Type: Epidural [facility] History I have reviewed the patient's past medical history: Yes *Have you ever received a pneumonia vaccine?: No *Have you received a flu vaccine this season?: No Anesthesia experience/problems:: nac Other Surgeries: Yes: Cholecystectomy, Thyroidectomy. No: Amputation: No Fractures: No - *Social History Smoking Status: Never smoker Alcohol Intake: never Substance Use Type: denies use *Occupational Status:: unemployed *Travel in the last 8 weeks: None Family Hx:: No significant family history Para: 2
--- NOTE | 2021-11-05 11:55 | HMH.LABNOT ---
Labor Note - Subjective: Date: 11/05/21 Time: 11:55 regular contraction - Objective: NST:: Reactive Contractions:: every 2-3 minutes Cervical Dilation:: 3-4 Effacement:: 50% Station: -3 Membranes: artificially ruptured Comment:: Copious clear fluid - Assessment: Labor progressing?: Yes Cephalopelvic disproportion?: No Patient Problems: All Active Problems Emesis (Acute) UTI (urinary tract infection) (Acute) Upper respiratory infection, viral (Acute) Real time reverse transcriptase PCR positive for COVID-19 virus (Acute) Normal delivery at term (Acute) (Acute) Bronchitis (Acute) Sprain of right hand (Acute) Fall (Acute) Facial contusion (Acute) Right hand pain (Acute) - Plan: Anesthesia for epidural?: Yes Continue to labor down?: Yes Plan for ?: No Continue to monitor?: Yes Start pushing?: No Comment:: She just got her epidural. She is a good 3 to 4 cm. Baby's head is still a little high. We will see how she does over the next few hours.
[2021-11-05 12:00] VITALS: BP 116/75; PULSE 72; RESP 19; TEMP 36.5; O2SAT 100
--- NOTE | 2021-11-05 14:10 | HMH.LABNOT ---
Labor Note - Subjective: Date: 11/05/21 Time: 13:45 regular contraction - Objective: NST:: Reactive Contractions:: every 2-3 minutes Cervical Dilation:: 4 Effacement:: 75% Station: -1 Membranes: artificially ruptured - Fetus: Monitoring?: Yes monitoring type:: External - Assessment: Labor progressing?: Yes Cephalopelvic disproportion?: No Patient Problems: All Active Problems Emesis (Acute) UTI (urinary tract infection) (Acute) Upper respiratory infection, viral (Acute) Real time reverse transcriptase PCR positive for COVID-19 virus (Acute) Normal delivery at term (Acute) (Acute) Bronchitis (Acute) Sprain of right hand (Acute) Fall (Acute) Facial contusion (Acute) Right hand pain (Acute) - Plan: Anesthesia for epidural?: Yes Continue to labor down?: Yes Plan for ?: No Continue to monitor?: Yes Start pushing?: No Additional information:: She continues to do well. She is progressing. The cervix has significantly thinned out and the baby's head has come down more. She is comfortable with her epidural. We will continue to await a vaginal delivery.
[2021-11-05 16:00] VITALS: BP 118/61; PULSE 63; RESP 19; TEMP 36.7; O2SAT 100
--- NOTE | 2021-11-05 17:12 | HMH.LABNOT ---
Labor Note - Subjective: Date: 11/05/21 Time: 17:12 regular contraction - Objective: NST:: Reactive Contractions:: every 2-3 minutes Cervical Dilation:: 7 Effacement:: 100% Station: 0 Membranes: artificially ruptured - Fetus: Monitoring?: Yes monitoring type:: External - Assessment: Labor progressing?: Yes Cephalopelvic disproportion?: No Patient Problems: All Active Problems Emesis (Acute) UTI (urinary tract infection) (Acute) Upper respiratory infection, viral (Acute) Real time reverse transcriptase PCR positive for COVID-19 virus (Acute) Normal delivery at term (Acute) (Acute) Bronchitis (Acute) Sprain of right hand (Acute) Fall (Acute) Facial contusion (Acute) Right hand pain (Acute) - Plan: Anesthesia for epidural?: Yes Continue to labor down?: Yes Plan for ?: No Continue to monitor?: Yes Start pushing?: No
--- NOTE | 2021-11-05 19:25 | HMH.DN ---
- Delivery Note Delivery Date:: 11/05/21 Delivery Time:: 19:15 Anesthesia Type: Epidural Was labor medically induced?: Yes Induction method: per pitocin protocol Gestational age (weeks): 39 Infant delivered prior to 39 weeks?: No Infant Gender: Male at 1 minute: 8 at 5 minutes: 9 Delivery Procedure:: She is a 31-year-old 4 para 2 aborta 1 at 39+ weeks gestational age. She elected to have induction of labor at 39 weeks. She was started on IV oxytocin and had her membranes ruptured. Under labor epidural she progressed to full dilation and delivered with the assistance of a vacuum a liveborn male child at 7:15 PM in the evening of November 05, 2021. She had pushed for a number of pushes and she was getting fatigued. The baby's head was not descending beyond the prominent tailbone. As result of that I applied a vacuum at station +3 to +4 and with 1 gentle pull I was able to deliver the head. On deliver the head it was noted that there was a tight nuchal cord. I was able to reduce this and then the anterior shoulder and the rest the infant's body delivered atraumatically. The baby was vigorous and cried spontaneously. The oropharynx and nasopharynx were bulb suction. We allowed the cord to continue to pulsate for approximately 1 minute. The cord was then doubly clamped and cut and the was handed off to Dr. Olea who assigned Apgars of 8 at 1 minute and 9 at 5 minutes. We then obtained cord blood. She received IV oxytocin and using gentle traction on the cord and countertraction the fundus I was able to easily deliver the placenta intact at 7:18 PM. He had a normal three-vessel cord. There were no perineal or vaginal lacerations. She has a positive blood, she is rubella immune and was group B streptococcus negative. She plans to breast-feed. Her estimated blood loss was 250 cc. Placental Delivery Description: Spontaneous
[2021-11-05 20:00] VITALS: BP 116/73; PULSE 85; RESP 18; TEMP 36.8; O2SAT 99
--- NOTE | 2021-11-05 22:09 | P.PN_ITS ---
Internal Medicine - PN: Subj *Date: 11/05/21 *Time: 22:09 Interval history: Increased bleeding. pt seen. few small clots expressed. total blood loss, about 650 cc since delivery total blood loss. Exam Vital signs and Labs for Last 24 Hours: Temp Pulse Resp BP Pulse Ox 98.1 F 63 19 118/61 100 11/05/21 16:00 11/05/21 16:00 11/05/21 16:00 11/05/21 16:00 11/05/21 16:00 Laboratory Results - last 24 hr 11/05/21 05:15: Urine Color Yellow, Urine Appearance Clear, Urine pH 7.0, Ur Specific [place] 1.010, Urine Protein Negative, Urine Glucose (UA) Negative, Urine Ketones Negative, Urine Blood Negative, Urine Nitrate Negative, Urine Bilirubin Negative, Urine Urobilinogen 1.0, Ur Leukocyte Esterase Negative, Urine RBC Occasional, Urine WBC Occasional, Ur Squamous Epith Cells 5-10, Urine Bacteria 1+ 11/05/21 05:15: Urine Opiates Screen Negative, Urine Methadone Screen Negative, Ur Barbituates Screen Negative, Ur Phencyclidine Scrn Negative, Ur Amphetamines Screen Negative, U Benzodiazepines Scrn Negative, Urine Cocaine Screen Negative, U Marijuana (THC) Screen Negative 11/05/21 05:25: WBC 5.1, RBC 3.66 L, Hgb 12.0 L, Hct 36.2 L, MCV 98.8, MCH 32.9 H, MCHC 33.3, RDW 15.3, Plt Count 189, MPV 10.0, Neut % (Auto) 55.5, Lymph % (Auto) 37.1, [place] % (Auto) 5.8, Eos % (Auto) 0.6, Baso % (Auto) 1.0, Neut # (Auto) 2.8, Lymph # (Auto) 1.9, [place] # (Auto) 0.3, Eos # (Auto) 0.0, Baso # (Auto) 0.1 11/05/21 05:25: Blood Type A Positive, Antibody Screen Negative 11/05/21 05:35: SARS-CoV-2 (PCR) Detected A, Influenza A Untype (PCR) Not detected, Influenza Type B (PCR) Not detected I & O for Last 24 hours: Intake & Output 06/04/11/04/21 11/05/21 11/06/21 11:59 11:59 11:59 11:59 Output Total 2099 / 2099 Balance -2099 / -2099 Weight 203 lb - Constitutional no acute distress Assessment and Plan (1) Real time reverse transcriptase PCR positive for COVID-19 virus Status: Acute Category: Medical Code(s): U07.1 - COVID-19 (2) Normal delivery at term Status: Acute Category: Medical Code(s): O80 - Encounter for full-term uncomplicated delivery - Assessment and plan all Dx Assessment and Plan for all problems:: hemabate, no contraindications, observe closely. HH in am. second IV. continue oxytocin
[2021-11-06] VITALS: BP 127/77; PULSE 80; RESP 18; TEMP 36.9; O2SAT 99
[2021-11-06 04:00] VITALS: BP 128/68; PULSE 75; RESP 17; TEMP 36.8; O2SAT 99
[2021-11-06 08:05] VITALS: BP 120/61; PULSE 78; RESP 18; TEMP 36.6; O2SAT 99
[2021-11-06 09:11] LABS: Hematocrit 30.1 % (37.0-47.0); Hemoglobin 10.7 g/dL (12.2-16.2)
--- NOTE | 2021-11-06 11:19 | SW/DCPLANNER ---
Addendum entered by Melanie Adames 11/12/21 10:50: Infant cord screen: NEGATIVE. Original Note: I received a referral for this patient regarding positive THC 1st visit. Patient was positive for THC on 04/03/21 and 05/02/21: patient stated that she was unaware she was and has not used THC since. Infant male (Bello Scott) was born yesterday 11/05/21. 's father is involved and was present at time of my visit: Jose Ramon Scott 04/09/89. Patient, and patient's other daughter (Pj Johnson 02/04/19) will reside at [address] [place] [address] in [place]. Patient's contact number is [phone]. Patient denied any past Social Service involvement with first child. Patient is currently established with WIC and has everything she needs at home. Patient is expected to discharge home tomorrow 11/07/2021. Patient's nurse (Ayden) stated that patient and father are appropriate with .
--- NOTE | 2021-11-06 11:44 | HMH.ACPN2 ---
Internal Medicine - PN: Subj *Date: 11/06/21 *Time: 11:44 Interval history: She is doing much better this morning. She had some bleeding last night but this has completely settled. She is breast-feeding. Her hemoglobin is 10.7. Her lochia now is normal. Exam Vital signs and Labs for Last 24 Hours: Temp Pulse Resp BP Pulse Ox 97.8 F 78 18 120/61 99 11/06/21 08:05 11/06/21 08:05 11/06/21 08:05 11/06/21 08:05 11/06/21 08:05 Laboratory Results - last 24 hr 11/05/21 05:25: Blood Type A Positive, Antibody Screen Negative, Crossmatch (AHG) See Detail 11/06/21 08:38: Hgb 10.7 L, Hct 30.1 L I & O for Last 24 hours: Intake & Output 11/03/21 11/04/21 11/05/21 11/06/21 11:59 11:59 11:59 11:59 Output Total 2100 / 2100 Balance -2100 / -2100 Weight 203 lb - *Routine HEENT Exam Head: Present: normocephalic Eye: Present: EOMI, PERRL ENT: Present: mucous membranes moist Assessment and Plan (1) Real time reverse transcriptase PCR positive for COVID-19 virus Status: Acute Category: Medical Code(s): U07.1 - COVID-19 (2) Normal delivery at term Status: Acute Category: Medical Code(s): O80 - Encounter for full-term uncomplicated delivery - Assessment and plan all Dx Assessment and Plan for all problems:: She continues to do very well. We will plan to send her home tomorrow.
[2021-11-06 16:42] VITALS: BP 123/61; PULSE 73; RESP 17; TEMP 36.8; O2SAT 95
[2021-11-06 20:00] VITALS: BP 117/61; PULSE 69; RESP 17; TEMP 36.7; O2SAT 99
[2021-11-07 04:00] VITALS: BP 117/64; PULSE 65; RESP 17; TEMP 36.5; O2SAT 99
--- NOTE | 2021-11-07 09:57 | HMH.OBDCSM ---
General - General Admission date:: 11/05/21 Discharge date: 11/07/21 HPI - History of Present Illness History of present illness: She is a 31-year-old 4 para 2 at 39 and 5 weeks gestational age who was admitted for induction of labor at term. Hospital Course Hospital Course: She was started on IV oxytocin had her membranes ruptured. She progressed under labor epidural to full dilation and delivered with the assistance of a vacuum a liveborn male child at 7:15 PM in the evening of November 05, 2021. Baby weighed 8 pounds 5 ounces and had Apgars of 8 at 1 minute and 9 at 5 minutes. There were no perineal or vaginal lacerations. She has done well and has remained afebrile without her hospitalization. She is eating and drinking and ambulating. She is breast-feeding. She has a positive blood, she is rubella immune and was group B streptococcus negative. Her gaming director is Dr. Olea. On admission she was positive for COVID but she had COVID a couple of weeks ago. Her PCR the day prior to admission was negative the rapid test was positive on the day of admission and then we repeated her PCR and it was negative again. She is discharged home to follow-up with me in approximately 2 weeks time. She will continue with her vitamins and iron. She was given the usual instructions with respect to limiting her activity, driving and sexual activity. Her condition on discharge is stable and improved. Rhogam Administration: Not Indicated Objective Vital signs: Temp Pulse Resp BP Pulse Ox 97.7 F 65 17 117/64 99 11/07/21 04:00 11/07/21 04:00 11/07/21 04:00 11/07/21 04:00 11/07/21 04:00 no acute distress - *Routine HEENT Exam Head: Present: normocephalic Eye: Present: EOMI, PERRL ENT: Present: mucous membranes moist Results Labs on day of discharge: Labs from last 24 hours 11/05/21 05:25 Crossmatch (AHG) See Detail DS: Diagnosis - Discharge Diagnosis (1) Real time reverse transcriptase PCR positive for COVID-19 virus Status: Acute (2) Normal delivery at term Status: Acute Discharge Plan - Patient Discharge Instructions ACTIVITY: No heavy lifting DIET: continue same diet Additional Instructions: *Nothing in the Vagina for 6 weeks* *No tubs baths for 6 weeks* *No heavy lifting* *No strenuous activity* Patient Instructions: Depression, Hemorrhage, DI for Labor and Delivery, Vaginal , DI for Pre-eclampsia, [facility] Post Discharge Instructions, Preventing the Spread of Coronavirus Discharge Instructions - Follow up Plan Follow up with: Julien Romo MD [Staff Physician] - Disposition: Home, Self-Care Condition at discharge:: Stable Home Medications: Home Medications Medication Instructions Recorded Confirmed Type Fluoxetine HCl [Prozac 20mg 20 mg PO DAILY 01/04/21 11/05/21 History Capsule] ondansetron 4 mg disintegrating 4 mg PO TIDP PRN tab 10/31/21 11/05/21 History tablet Levothyroxine Sodium 125 mcg PO DAILY 11/05/21 11/05/21 History [Levothyroxine 125mcg (0.125mg) Tab] hydrOXYzine pamoate [Vistaril] 25 mg PO QID 11/05/21 11/05/21 History Prescriptions/Medication Reconciliation: Continued ondansetron 4 mg disintegrating tablet 4 mg PO TIDP PRN tab PRN Reason: Nausea And Vomiting Fluoxetine HCl [Prozac 20mg Capsule] 20 mg PO DAILY Levothyroxine Sodium [Levothyroxine 125mcg (0.125mg) Tab] 125 mcg PO DAILY hydrOXYzine pamoate [Vistaril] 25 mg PO QID - Problem Reconciliation Problems Reviewed?: Yes
== END 2021-11-07 12:35 | disposition home or self-care (01) | DRG 805 ==
PROVIDERS: Admitting Provider Nurse Practitioner Obstetrics & Gynecology; PCP Nurse Practitioner Family; Visit Provider Nurse Practitioner Obstetrics & Gynecology
DX: O69.81X0 Labor and delivery complicated by cord around neck, without compression, not applicable or unspecified (principal); U07.1 COVID-19; Z37.0 Single live birth; O98.513 Other viral diseases complicating pregnancy, third trimester; Z3A.39 39 weeks gestation of pregnancy; Z28.310 Unvaccinated for COVID-19; O75.81 Maternal exhaustion complicating labor and delivery; O32.4XX0 Maternal care for high head at term, not applicable or unspecified
CPT/HCPCS: 59409; 36415; 59025; 80305; 81001; 85014; 85018; 85025; 86850; 94761; C9803; G0283; J2405; U0003; U0005

== ENCOUNTER → 2023-02-13 14:43 | Outpatient (CLI) | payer MEDICAID, SELFPAY ==
[2023-02-13 16:27] LABS: Free T4 (Free Thyroxine) 1.51 ng/dl (0.78-2.19)
[2023-02-13 16:42] LABS: Thyroid Stimulating Hormone 1.09 uIU/mL (0.465-4.68)
== END ==
PROVIDERS: PCP Nurse Practitioner Family; Visit Provider Nurse Practitioner Family
DX: E03.9 Hypothyroidism, unspecified (principal)
CPT/HCPCS: 36415; 84439; 84443

== ENCOUNTER 2023-08-27 14:49 | Outpatient (CLI) | payer MEDICAID, SELFPAY ==
--- NOTE | 2023-08-27 14:57 | US_ITS ---
FINAL REPORT CLINICAL HISTORY: PT HAS PAIN RT MID BACK -- FELT ASYMMETRY COMPARISON: None FINDINGS: Sonographic images were obtained of the mid back soft tissues at the area of interest. There is no evidence of mass or fluid collection. IMPRESSION: No abnormality identified at the area of interest. If symptoms persist, consider MRI. Reviewed, Interpreted and Dictated by Gautam Cyr MD Transcribed by Shiela Petty Authenticated and [facility]
== END 2023-08-27 23:59 ==
LOC: RAD 14:50
PROVIDERS: PCP Nurse Practitioner Family; Visit Provider Nurse Practitioner Family
DX: M54.9 Dorsalgia, unspecified (principal)
CPT/HCPCS: 76604

== ENCOUNTER 2023-10-13 19:49 | Emergency (ER) | payer MEDICAID, SELFPAY ==
[2023-10-13 19:49] VITALS: BP 124/75; PULSE 74; RESP 16; TEMP 36.6; O2SAT 100; BMI 23.8
[2023-10-13 20:25] LABS: Basophils # 0.1 K/mm3 (0-0.2); Basophils % 0.9 % (0.1-2.0); Eosinophils # 0.1 K/mm3 (0.0-0.4); Eosinophils % 0.8 % (0.1-12.0); Hematocrit 38.8 % (37.0-47.0); Hemoglobin 13.4 g/dL (12.2-16.2); Lymphocytes # 2.7 K/mm3 (0.7-4.5); Mean Corpuscular HGB Conc 34.5 g/dL (31.8-35.4); Mean Corpuscular Hemoglobin 32.8 pg (27.0-31.2); Mean Corpuscular Volume 95.1 fl (81-99); Mean Platelet Volume 9.3 fl (7.4-10.4); Monocytes # 0.4 K/mm3 (0.1-1.0); Monocytes % 4.3 % (1.7-9.3); Neutrophils % 65.1 % (37.0-80.0); Platelet Count 223 K/mm3 (142-424); Red Blood Count 4.08 M/mm3 (4.20-5.40); Red Cell Distribution Width 13.1 % (11.5-17.5); White Blood Count 9.2 K/mm3 (4.8-10.8)
[2023-10-13 20:30] VITALS: BP 104/70; PULSE 60; O2SAT 96
[2023-10-13 20:30] LABS: Chloride 106 mmol/L (98-107); Potassium 3.5 mmoL/L (3.5-5.1); Sodium 136 mmol/L (136-145)
[2023-10-13] MEDS: LACTATED RINGERS 1000ML 1,000 ML 999 ML IV (20:31)
[2023-10-13] MEDS: KETOROLAC 30MG/ML VIAL 30 MG IV (20:31)
[2023-10-13] MEDS: ONDANSETRON 4MG/2ML VIAL 4 MG IV (20:31)
[2023-10-13 20:32] LABS: Alanine Aminotransferase 17 U/L (12-78); Aspartate Amino Transferase 26 U/L (14-36); Blood Urea Nitrogen 8 mg/dl (7-17); Creatinine Clearance Estimated 147 mL/min (50-200); Estimated Glomerular Filt Rate 116 ml/min (>60); GFR (African American) 140 ML/MIN (>60)
[2023-10-13 20:33] LABS: Albumin Level 4.2 g/dl (3.5-5.0); Albumin/Globulin Ratio 1.5 (1.1-1.8); Alkaline Phosphatase 77 U/L (38-126); Anion Gap 9.5 mEq/L (5-15); Bilirubin,Total 0.5 mg/dl (0.2-1.3); Calcium 8.9 mg/dl (8.4-10.2); Carbon Dioxide 24 mmol/L (22.0-30.0); Globulin 2.8 g/dL (1.3-3.2); Glucose 92 mg/dl (74-100)
--- NOTE | 2023-10-13 20:35 | ED_ITS ---
Discharge Plan Disposition Patient Disposition: Home, Self-Care Condition: Good Prescriptions Prescriptions: New cefdinir 300 mg capsule 300 mg PO BID 10 Days Qty: 20 0RF No Action ondansetron 4 mg tablet,disintegrating 4 mg PO TIDP PRN (Reason: Nausea And Vomiting) Mirena 20 mcg/24 hours (7 yrs) 52 mg intrauterine device INTRAUTERI levothyroxine 125 mcg tablet 75 mcg PO DAILY levothyroxine 75 mcg capsule 75 mcg PO DAILY Qty: 30 5RF fluoxetine 20 MG capsule 20 mg PO DAILY Referrals Follow up/Referrals: Maritza Lee APRN [Primary Care Provider] - See instructions Activity Restrictions/Add. Instructions Additional Instructions/Restrictions: You have been evaluated in the ED for your complaints. You may follow-up with your PCP in the next 3 to 5 days. Please return to ED for any new or worsening symptoms. I have written for cefdinir to treat your urinary tract infection. Please take this as prescribed. Clinical Impressions Clinical Impression: UTI (urinary tract infection), Hematuria Instructions Patient Instructions: DI for Urinary Tract Infection (UTI) Discharge ED Provider: Shabbir Menchaca Adult HPI General Chief complaint: Urogenital-Female Stated complaint: possible uti Time Seen by Provider: 10/13/23 20:32 Mode of Arrival: Ambulatory Source of Information: Patient Limitations: No Limitations Description of Symptoms (Recalled from ER Triage Doc. by RN): pt c/o blood in urine, painful and burning urination that started today History of Present Illness HPI narrative: 33-year-old female with no pertinent past medical history presents today for evaluation concerning urinary frequency and hematuria. She also states that she has been having suprapubic abdominal pain over the past few days. She does note that more recently she has only been able to urinate drips of blood. Denies any nausea or vomiting, fevers, chills, chest pain or shortness of breath. Does not have a history of kidney stones. She has a Mirena in place. No further complaints Related Data Home Medications Medication Instructions Recorded Confirmed fluoxetine 20 mg capsule 20 mg PO DAILY Depression 01/04/21 01/30/22 ondansetron 4 mg disintegrating 4 mg PO TIDP PRN Nausea And 10/31/21 01/30/22 tablet Vomiting levonorgestrel 21 mcg/24 hr (up to intrauterine 01/02/22 01/30/22 8 years) 52 mg intrauterine device (Mirena) levothyroxine 125 mcg tablet 75 mcg PO DAILY THYROID 05/30/22 Previous Rx's Medication Instructions Recorded levothyroxine 75 mcg capsule 75 mcg PO DAILY #30 caps 05/30/22 cefdinir 300 mg capsule 300 mg PO BID 10 days #20 caps 10/13/23 Allergies Allergy/AdvReac Type Severity Reaction Status Date / Time No Known Allergies Allergy Verified 01/30/22 14:19 [facility] Disclaimer: The information contained in this section may have been updated after the patient was seen, as this information can be updated by other users. Social History (Updated 01/30/22 @ 14:19 by ISREAL Alejandre) Smoking Status: Current every day smoker alcohol intake: never substance use type: denies use current occupational status: unemployed Travel in the last 8 weeks: None ROS Obtained: Yes All systems reviewed & no additional complaints except as documented Physical Exam General General appearance: alert and in no apparent distress Head Head exam: atraumatic and normocephalic Eye Eye exam: Present normal appearance, PERRL and EOMI ENT ENT exam: Present normal oropharynx and mucous membranes moist Neck Neck exam: Present full ROM; Absent meningismus Respiratory Respiratory exam: Absent respiratory distress, wheezes, stridor or accessory muscle use Cardiovascular Cardiovascular exam: Present normal rhythm Abdominal Exam Abdominal exam: Present soft and tenderness; Absent distention, guarding, rebound or rigidity Abdominal tenderness: Present suprapubic Neurological Exam Neurological exam: Present alert, oriented X3 and CN II-XII intact; Absent motor sensory deficit Psychiatric Psychiatric exam: Present normal affect and normal mood Skin Skin exam: Present warm and dry Medical Decision Making Medical Records Medical records reviewed: Yes I reviewed the patient's medical records. Reg Inquiry Pt receiving controlled substance: No Reg was queried for this patient: No Vital Signs: 10/13/23 19:49 10/13/23 20:30 10/13/23 21:00 Temperature 98 F Temperature Source Oral Pulse Rate 60 54 L Pulse Rate [Left] 74 Respiratory Rate 16 Blood Pressure 104/70 L 107/63 L Blood Pressure [Right Arm] 124/75 Blood Pressure Mean 78 75 Blood Pressure Mean [Right Arm] 91 02 Sat by Pulse Oximetry 100 96 96 Oxygen Delivery Method Room Air Room Air Lab Data Lab Results 10/13/23 20:08: Urine Color Pfeifer, Urine Appearance Cloudy, Urine pH 6.5, Ur Specific [place] >= 1.030, Urine Protein 2+, Urine Glucose (UA) Negative, Urine Ketones Trace, Urine Blood 3+, Urine Nitrate Positive, Urine Bilirubin Negative, Urine Urobilinogen 1.0, Ur Leukocyte Esterase 2+ A, Urine RBC Tntc, Urine WBC 5- 10, Ur Squamous Epith Cells Occasional, Urine Bacteria Trace 10/13/23 20:17: WBC 9.2, RBC 4.08 L, Hgb 13.4, Hct 38.8, MCV 95.1, MCH 32.8 H, MCHC 34.5, RDW 13.1, Plt Count 223, MPV 9.3, Neut % (Auto) 65.1, Lymph % (Auto) 29.0, [place] % (Auto) 4.3, Eos % (Auto) 0.8, Baso % (Auto) 0.9, Neut # (Auto) 6.0, Lymph # (Auto) 2.7, [place] # (Auto) 0.4, Eos # (Auto) 0.1, Baso # (Auto) 0.1, Sodium 136, Potassium 3.5, Chloride 106, Carbon Dioxide 24, Anion Gap 9.5, BUN 8, Creatinine 0.60, Estimated Creat Clear 147, Estimated GFR 116, Est GFR ( Amer) 140, Glucose 92, Calcium 8.9, Total Bilirubin 0.5, AST 26, ALT 17, Alkaline Phosphatase 77, Total Protein 7.0, Albumin 4.2, Globulin 2.8, Albumin/Globulin Ratio 1.5, Serum HCG, Qual Negative 10/13/23 20:17 10/13/23 20:17 Orders (Tests/Meds): ED MEDICATIONS Discontinued Medications Generic Name Dose Route Start Last Admin Trade Name Freq PRN Reason Stop Dose Admin Lactated Ringer's 1,000 mls @ 999 mls/hr 10/13/23 20:25 10/13/23 20:31 Lactated Ringer's 1000 Ml Bag IV 10/13/23 21:25 999 mls/hr .Q1H1M ONE Administration Ketorolac Tromethamine 30 mg 10/13/23 20:25 10/13/23 20:31 Ketorolac 30mg/Ml Vial IV 10/13/23 20:26 30 mg ONCE ONE Administration Ondansetron HCl 4 mg 10/13/23 20:25 10/13/23 20:31 Ondansetron 4mg/2ml Vial IV 10/13/23 20:26 4 mg ONCE ONE Administration ORDERS Category Date Time Status CT abdomen pelvis wo con Stat Cat Scan 10/13/23 20:43 Completed Complete Blood Count Auto Diff Stat Lab 10/13/23 20:17 Completed Comprehensive Metabolic Panel Stat Lab 10/13/23 20:17 Completed Serum [HCG Qualitative, Serum] Stat Lab 10/13/23 20:17 Completed UA [Urinalysis and Microscopic] Stat Lab 10/13/23 20:08 Completed Urine Culture Stat Micro 10/13/23 20:08 Received Medical Decision Narrative: 33-year-old female with no pertinent past medical history presents today for evaluation concerning urinary frequency and hematuria. She also states that she has been having suprapubic abdominal pain over the past few days. She does note that more recently she has only been able to urinate drips of blood. On assessment she was hemodynamically stable and in no acute distress. Afebrile. She did not have any CVA tenderness. Very mild tenderness palpation in the suprapubic region. Otherwise exam vitals unremarkable differential diagnoses include not limited to nephrolithiasis, hemorrhagic cystitis, UTI, among others. Lab workup today shows a WBC of 9.2 negative screen. Urinalysis with 2+ leukocyte esterase, nitrate positive, 5-10 WBCs. Trace bacteria. Too numerous to count RBCs. CT abdomen pelvis without contrast showed mildly thickened urinary bladder wall consistent with cystitis. On reassessment she remained hemodynamically stable and in no acute distress. I discussed ED workup results and current plan to discharge home with cefdinir to treat her UTI. She verbalized understanding and agreement. Provided with return ED precautions. Subsequently discharged home HD stable and in no distress. Critical Care Critical Care Time Critical Care Time: No
[2023-10-13 20:36] LABS: Microscopic, Urine URINE MICROSCOPIC (MICROSCOPIC)
[2023-10-13 20:38] LABS: Appearance,Urine CLOUDY (Clear); Bilirubin,Urine Negative (Negative); Blood, Urine 3+ (Negative); Color,Urine ORANGE (Yellow); Glucose,Urine (UA) Negative (Negative); Ketones,Urine TRACE (Negative); Leukocyte Esterase,Urine 2+ (Negative); Nitrate,Urine POSITIVE (Negative); PH,Urine 6.5 (5.0-8.5); Protein,Urine 2+ (Negative); Specific Gravity, Urine >= 1.030 (1.005-1.030)
--- NOTE | 2023-10-13 20:43 | CT_ITS ---
PROCEDURE INFORMATION: Exam: CT Abdomen And Pelvis Without Contrast Exam date and time: 10/13/2023 9:10 PM Age: 33 years old Clinical indication: Abdominal pain; Additional info: Hematuria, decreased urine TECHNIQUE: Imaging protocol: Computed tomography of the abdomen and pelvis without contrast. Radiation optimization: All CT scans at this facility use at least one of these dose optimization techniques: automated exposure control; mA and/or kV adjustment per patient size (includes targeted exams where dose is matched to clinical indication); or iterative reconstruction. COMPARISON: 1. US OB BIOPHYSICAL PROFILE 10/02/2021 1:20 PM 2. US OB /MATERNAL DETAIL 06/20/2021 1:06 PM 3. US OB <= 14 WEEKS FETUS 03/28/2021 1:09 PM FINDINGS: Liver: Normal. Gallbladder and bile ducts: No acute process. Pancreas: Normal. Spleen: Normal. Adrenal glands: The adrenal glands appear normal. Kidneys and ureters: No urolithiasis or hydronephrosis. Stomach and bowel: The stomach, small bowel, and colon are well-distended and show no evidence of wall thickening, masses, or obstruction. Appendix: No evidence of appendicitis. Intraperitoneal space: Unremarkable. Vasculature: The abdominal aorta and its major branches appear normal without evidence of aneurysm or stenosis. There are pelvic phleboliths. Lymph nodes: No lymphadenopathy. Urinary bladder: Mildly thick-walled urinary bladder could reflect cystitis or under distension. Reproductive: There is an intrauterine device in place. Bones/joints: The visualized osseous structures of the abdomen and pelvis appear normal for patient age. Soft tissues: Unremarkable. IMPRESSION: 1. Mildly thick-walled urinary bladder could reflect cystitis or under distension. 2. No urolithiasis or hydronephrosis.
[2023-10-13 20:49] LABS: Bacteria,Urine Trace /lpf; RBC,Urine TNTC #/hpf (0-3); Squamous Epithelial Cell,Urine Occasional #/hpf (0-5)
[2023-10-13 21:00] VITALS: BP 107/63; PULSE 54; O2SAT 96
[2023-10-13 21:01] LABS: HCG Qualitative, Serum Negative (Negative)
[2023-10-13 23:18] VITALS: BP 109/67; PULSE 61; RESP 16; TEMP 36.6; O2SAT 98
--- NOTE | 2023-10-17 08:53 | PC.NURSE ---
discussed urine culture with pt dc with cefdinir, ntd
== END 2023-10-13 23:19 | disposition home or self-care (01) ==
PROVIDERS: Emergency Provider Emergency Medicine; PCP Nurse Practitioner Family
DX: N39.0 Urinary tract infection, site not specified (principal); B96.29 Other Escherichia coli [E. coli] as the cause of diseases classified elsewhere; R31.9 Hematuria, unspecified; R10.30 Lower abdominal pain, unspecified; F17.210 Nicotine dependence, cigarettes, uncomplicated
CPT/HCPCS: 74176; 80053; 81001; 84703; 85025; 87086; 87088; 87186; 96361; 96374; 96375; 99284; J2405

== ENCOUNTER 2023-11-13 10:00 | Outpatient (RCR) | payer MEDICAID, SELFPAY ==
--- NOTE | 2023-09-16 15:52 | HMH.PTOPEV ---
PT Outpatient Evaluation Rehab PT Outpatient Evaluation Start: 09/16/23 15:37 Freq: Status: Active Protocol: Document 09/16/23 15:37 CAITLIN (Rec: 09/16/23 15:50 CAITLIN [id number]) E-signed By Jared Nichole, PT Outpatient Therapy Subjective History Subjective History Pt reports insidious onset right shoulder blade area pain beginning ~ 4 months ago. Pt reports repeatitive lifting and reaching likelt contributed to right shoulder pain over the last ~3 months, however recent job promotion reduced lifting/reaching but pain hasn't improved. Pt reports medial border of scapula is origin of pain with referred pain into shoulder blade and midline of thoracic spine. PMH:scoliosis New diagnosis of cancer in past 12 No months? Chief Complaint Pain,Paresthesia Symptom Type Ache,Dull,Burning,Other Symptoms Relieved By Rest/Positioning Symptoms Aggravated By Physical Activity,Lifting Prior Functional Limitations Lifting,Housework Current Functional Limitations Lifting,Housework,Sleeping Symptom Description Constant but Variable Level of pain today (0-10) 3 Pain scale - at its best (0-10) 3 Pain scale - at its worst (0-10) 7 Shoulder/Elbow Eval Shoulder Objective Measurements Palpation Tenderness Shoulder Palpation Findings Tenderness Shoulder Palpation Overall Comment 3/4 rhomboid,mid trap Right Shoulder ROM Right Shoulder Abduction Active Range of 0-165 Motion (degrees) Shoulder Flexion Active Range of Motion 0-165 (degrees) Query Text: Shoulder MMT Lower Trapezius Strength Grade 3+ Fair+ Middle Trapezius Strength Grade 3+ Fair+ Rhomboids Strength Grade 3+ Fair+ Shoulder Abduction Strength Grade 5 Normal Shoulder Flexion Strength Grade 5 Normal Shoulder External Rotation Strength 5 Normal Grade Shoulder Internal Rotation Strength 5 Normal Grade Subscapularis Muscle Grade 4- Good- Supraspinatus Strength Grade 5 Normal Shoulder Special Tests Shoulder Drop Arm Test Negative Right Shoulder Cross-Over Impingement Test Negative Right Anterior/Posterior Rib Compression Test + R T- 5-9 Elbow Objective Measurements Lumbopelvic Eval Palapation tenderness right thoracic spinal tenderness Yes: 2-3/4 thoracic 5-9 Oswestry Index Section 1 Pain Intensity The pain comes and goes and is moderate Section 2 Personal Care (Washing,Dresing) change my way of washing or dressing in order to avoid pain Section 3 Lifting lifting heavy weights off the floor, but I can manage light to medium Section 4 Walking I have no pain when walking Section 5 Sitting I can sit in any chair for as long as I like Section 6 Standing I can stand as long as I want without pain Section 7 Sleeping Because of my pain, my normal night's sleep is less than 6 hours sleep Section 8 Social Life My social life is normal but increases the degree of pain Section 9 Traveling I get no pain when traveling Section 10 Changing Degreee of Pain My pain is neither getting better or worse Score and Risk Level Oswestry Sc 12 Oswestry Risk Level Mild Disability Outpatient Therapy Assessment Impairments Problems/Impairmments Palpation Tenderness,Impaired Strength,Impaired Lifting, Impaired Household Care, Subjective C/O Pain,Impaired Self Care/Self Management Prognosis Rehab Potential Good Clinical Impression Consistent with Diagnosis Yes Short Term Goals Number of Weeks 4 Decreased Palpation Tenderness Yes: 1-2/4 right periscap mm Increase Strength Yes: 4/5 right periscap mm Restore Ability to Lift Objects Overhead Yes: 5# RUE Improve Ability For Household Care Yes: 30MIN Improve Tolerance to Work Activities Yes: 30MIN Decrease Subjective C/O Pain Yes: 3/10 W/ABOVE ACTIVITIES Patient to be Ind w/ HEP Yes Custodial Goals Number of Weeks 6-8 Decreased Palpation Tenderness Yes: 0-1/4 RIGHT PERISCAP MM Increase Strength Yes: 4+-5/5 R PERISCAP. MM Restore Ability to Lift Objects Overhead Yes: 10# Improve Ability For Household Care Yes: 60MIN Improve Tolerance to Work Activities Yes: 60MIN Improve Oswestry Score Yes: 6-8 Decrease Subjective C/O Pain Yes: 0-1/10 W/ABOVE ACTIVITIES Patient to be Ind w/ Advanced HEP Yes Outpatient Therapy Plan of Care Treatment Plan May Include Therapeutic Exercise Including Home Yes Exercise Program Manual Therapy Techniques Yes Neuromuscular Re-education Yes Therapeutic Activities to Return to Yes Previous Functional/Work Level ADL/Self Care Education Yes Dry Needling Yes Thermal Modalities Yes Electrical Stimulation Yes Ultrasound/Phonophoresis Yes Iontophoresis Yes Eval/Re-Eval Yes Frequency Times per week 2-3 Duration Number of Weeks 6-8 Addendums This patient is a candidate for social No or vocational rehab? Patient/Guardian verbally acknowledges Yes understanding of treatment program and consents to further treatment? Patient/Guardian verbally acknowledges Yes understanding of diagnosis, prognosis and goals for treatment? Eval Complexity PT Charges 15822 - Low Complexity PHYSICIAN CERTIFICATION: I certify the specified therapy services for [facility] are required, authorized, and reviewed every 30 days.
--- NOTE | 2023-10-21 10:45 | HMH.RHREAS ---
Rehab Reassessment Rehab OP Re-assessment Start: 09/16/23 15:37 Freq: Status: Active Protocol: Document 10/21/23 10:11 CAITLIN (Rec: 10/21/23 10:44 CAITLIN [id number]) E-signed By Jared Nichole, PT Oswestry Index Section 1 Pain Intensity The pain comes and goes and is moderate Section 2 Personal Care (Washing,Dresing) change my way of washing or dressing in order to avoid pain Section 3 Lifting lifting heavy weights off the floor, but I can manage light to medium Section 4 Walking I have no pain when walking Section 5 Sitting I can sit in my favorite chair for as long as I like Section 6 Standing I cannot stand more than 1/2 hour without increasing pain Section 7 Sleeping Because of my pain, my normal night's sleep is less than 6 hours sleep Section 8 Social Life My social life is normal but increases the degree of pain Section 9 Traveling I get no pain when traveling Section 10 Changing Degreee of Pain My pain fluctuates, but overall is definitely getting better Score and Risk Level Oswestry Sc 14 Oswestry Risk Level Mild Disability Rehab Re-assessment Subjective Subjective Pt reports 4/10 right periscapular area pain on VAS this am, and on average with any activity level. Objective Objective Notes TTP: RIGHT RHOMBOID/MID TRAP 1 -2/4 PIVM: WFL MID THORACIC SPINE AROM: RIGHT SHOULDER FLX AND ABD WFL MMT: RIGHT SH RHOMBOID 3+-4/5, MID TRAP 3+-4/5, LOW TRAP 3+- 4-/5 Assessment Progress Assessment Progressing as Expected Assessment Notes IMPROVED STRENGTH, ROM, AND TTP Patient goals met STG'S 10/06 LTG'S 08/07 Goals Not Met STG'S 07/09, LTG'S 10/07 Plan Plan Pt to continue w/skilled P.T. to make further improvements in strength, TTP, and ROM to allow for optimal function Frequency of Therapy 1-2x/wk Duration of therapy 4-6wks Time and Billing Re-Eval Time 12 Re-Eval Billing Units 1 PHYSICIAN CERTIFICATION: I certify the specified therapy services for Britni Mayra Carlos are required, authorized, and reviewed every 30 days.
== END 2023-11-13 10:05 | disposition home or self-care (01) ==
LOC: PT 10:00
PROVIDERS: Visit Provider Nurse Practitioner Family
DX: M25.511 Pain in right shoulder (principal)
CPT/HCPCS: 97010; 97014; 97035; 97110; 97140; 97163; 97164; G0283

== ENCOUNTER 2024-02-21 01:24 | Emergency (ER) | payer MEDICAID, SELFPAY ==
[2024-02-21] VITALS (7 sets, daily range): BP systolic 112–128; BP diastolic 74–90; PULSE 54–81; RESP 17–18; TEMP 36.8–36.9; O2SAT 97–99; BMI 23.9
[2024-02-21] MEDS: LIDOCAINE 2% VISCOUS SOL 15ML UDC 15 ML PO (01:39)
[2024-02-21] MEDS: TETRACAINE/BENZOCAINE/BUTAMBEN 56 GM SPRAY TP (01:39)
--- NOTE | 2024-02-21 01:56 | ED_ITS ---
Discharge Plan Disposition Patient Disposition: Home, Self-Care Condition: Good Prescriptions Prescriptions: New oxycodone 5 mg tablet 5 mg PO Q8H PRN (Reason: pain (scale score 7-10)) Qty: 10 0RF oxycodone 5 mg tablet 5 mg PO Q8H PRN (Reason: pain (scale score 7-10)) Qty: 10 0RF No Action ondansetron 4 mg tablet,disintegrating 4 mg PO TIDP PRN (Reason: Nausea And Vomiting) Mirena 20 mcg/24 hours (7 yrs) 52 mg intrauterine device INTRAUTERI levothyroxine 125 mcg tablet 75 mcg PO DAILY levothyroxine 75 mcg capsule 75 mcg PO DAILY Qty: 30 5RF cefdinir 300 mg capsule 300 mg PO BID 10 Days Qty: 20 0RF fluoxetine 20 MG capsule 20 mg PO DAILY Referrals Follow up/Referrals: Maritza Lee APRN [Primary Care Provider] - See instructions Activity Restrictions/Add. Instructions Additional Instructions/Restrictions: You were evaluated in the ER and are appropriate for discharge at this time. Take Tylenol, ibuprofen for pain. Do not exceed the recommended doses on the bottle. If these medications are not controlling your pain and you still have severe pain, then take the oxycodone. This medication should only be used for severe, breakthrough pain as it is a controlled substance with significant side effects and risk for addiction. This medication can also cause constipation as well as sleepiness. Do not drive or operate machinery after taking this medication. Use the provided dental balls if needed, you can keep 1 in for up to 1 hour at a time, then remove for 1 hour. Do not eat, drink, or sleep with these dental balls in place. Follow-up with a dentist as soon as possible. Return to the ER with new, worsening, or otherwise concerning symptoms. dentistry urgent care clinic [address] [phone]. Friday-Friday 8am., you have to arrive early to be seen as it is a first come, first served basis. Clinical Impressions Clinical Impression: Pain, dental Print Language Print Language: Iranian Discharge ED Provider: Ronnell Montelongo Adult HPI General Chief complaint: Dental/Oral Stated complaint: tooth pain Time Seen by Provider: 02/21/24 01:31 Mode of Arrival: Ambulatory Source of Information: Patient Limitations: No Limitations Description of Symptoms (Recalled from ER Triage Doc. by RN): Patient reports that she has a temporary filling on the left side of her mouth and is supposed to get a root canal done on March 03. She reports she has had minimal pain t hat has been controlled by topical analgesics until this morning. Patient reports she awoke from sleep at approximately 0100 with searing, throbbing pain rated 8/10. History of Present Illness HPI narrative: 34-year-old female presents to the ER for complaints of left upper dental pain. Patient reports she has a temporary filling on the left side but is due for root canal. She reports pain had been controlled with Tylenol, ibuprofen, and occasional hydrocodone prescribed by her dentist. She states tonight the pain awoke her from sleep. Patient is tearful reporting pain 8 out of 10. She states she took her last hydrocodone around 9 PM, she also states she took ibuprofen around 6 PM. Patient denies fevers, chills, difficulty swallowing, facial swelling, or any other associated symptoms. Related Data Home Medications ?Medication ?Instructions ?Recorded ?Confirmed fluoxetine 20 mg capsule 20 mg PO DAILY Depression 01/04/21 01/30/22 ondansetron 4 mg disintegrating 4 mg PO TIDP PRN Nausea And 10/31/21 01/30/22 tablet Vomiting levonorgestrel 21 mcg/24 hr (up to intrauterine 01/02/22 01/30/22 8 years) 52 mg intrauterine device (Mirena) levothyroxine 125 mcg tablet 75 mcg PO DAILY THYROID 05/30/22 Previous Rx's ?Medication ?Instructions ?Recorded levothyroxine 75 mcg capsule 75 mcg PO DAILY #30 caps 05/30/22 cefdinir 300 mg capsule 300 mg PO BID 10 days #20 caps 10/13/23 oxycodone 5 mg tablet 5 mg PO Q8H PRN pain (scale score 02/21/24 7-10) #10 tabs oxycodone 5 mg tablet 5 mg PO Q8H PRN pain (scale score 02/21/24 7-10) #10 tabs Allergies Allergy/AdvReac Type Severity Reaction Status Date / Time No Known Allergies Allergy Verified 01/30/22 14:19 [facility] Disclaimer: The information contained in this section may have been updated after the patient was seen, as this information can be updated by other users. Social History (Updated 01/30/22 @ 14:19 by ISREAL Alejandre) Smoking Status: Current every day smoker alcohol intake: never substance use type: denies use current occupational status: unemployed Travel in the last 8 weeks: None ROS Obtained: Yes Systems reviewed as appropriate & no additional complaints except as documented Positive ROS per HPI Physical Exam General General appearance: alert and in no apparent distress Comment: Tearful but nontoxic, not in extremis Head Head exam: atraumatic and normocephalic Eye Eye exam: Present PERRL and EOMI ENT ENT exam: Present mucous membranes moist Expanded ENT Exam Teeth exam: Present dental caries and other (Pain at the base of tooth 14 without swelling, fluctuance, no periapical abscess, no obvious reproducible tenderness, no fractured tooth) Comment: No facial swelling, no submandibular or sublingual swelling, no finding of periapical abscess Neck Neck exam: Present normal inspection and full ROM Chest Chest inspection: Present symmetric chest wall rise Respiratory Respiratory exam: Absent respiratory distress or stridor Cardiovascular Cardiovascular exam: Present regular rate and normal rhythm Extremities Exam Extremities exam: Present full ROM Neurological Exam Neurological exam: Present alert and oriented X3; Absent motor sensory deficit Skin Skin exam: Present warm and dry Medical Decision Making Medical Records Screening: Per USPSTF and CDC recommendations, given the prevalence of disease in our region, it is our hospital?s policy to screen for HIV and viral Hepatitis for all patients aged 18 and over and those with ongoing risk factors. Reg Inquiry Pt receiving controlled substance: Yes Reg was queried for this patient: Yes Reference #:: [id number] Risks and benefits of using a controlled substance: were discussed with pt by me Vital Signs: 02/21/24 01:25 Temperature 98.5 F Temperature Source Oral Pulse Rate [Left Radial] 80 Respiratory Rate 18 Blood Pressure [Right Arm] 121/90 Blood Pressure Mean [Right Arm] 100 Blood Pressure Source [Right Arm] Automatic Cuff Blood Pressure Position [Right Arm] Sitting 02 Sat by Pulse Oximetry 97 Oxygen Delivery Method Room Air Orders (Tests/Meds): ED MEDICATIONS Discontinued Medications Generic Name Dose Route Start Last Admin Trade Name Freq PRN Reason Stop Dose Admin Benzocaine/Butamben/Tetracaine HCl 1 gm 02/21/24 01:37 02/21/24 01:39 Tetracaine/Benzocaine/Butamben 56 Gm [place] TP 02/21/24 01:38 1 gm ONCE ONE Administration Bupivacaine HCl 5 mg 02/21/24 01:51 02/21/24 02:06 Bupivacaine 0.5% 10ml Vial IJ 02/21/24 01:52 5 mg ONCE ONE Administration Lidocaine HCl 15 ml 02/21/24 01:37 02/21/24 01:39 Lidocaine 2% Viscous [place] 15ml Udc PO 02/21/24 01:38 15 ml ONCE ONE Administration Oxycodone HCl 5 mg 02/21/24 01:52 02/21/24 02:00 Oxycodone 5mg Immediate Release Tablet PO 02/21/24 01:53 5 mg ONCE ONE Administration Medical Decision Narrative: In summary, 34-year-old female presents to the ER for complaints of left maxillary dental pain. On evaluation patient has pain of tooth 14 with radiation into the maxillary region. No facial swelling, no periapical abscess, no significant reproducible tenderness, no fractured tooth. I considered fracture to, nerve pain, periapical abscess, gingivitis. Infection was not appreciated on exam. Patient was provided dental balls, she also consented to nerve block which was performed. See procedure note for details. Patient also received a dose of oxycodone in the ER. Patient had previously received narcotics for this pain. Patient was prescribed 12 hydrocodone on 02/05/2024 from her dentist, she has demonstrated responsible use of this medication since she still has 1 left despite having this medication for an extended period of time. Given her severe pain tonight I believe short course of narcotic for breakthrough pain is indicated. Oxycodone prescribed. Patient was given information for dentistry walk-in clinic. She is sophy ropriate for discharge at this time. Patient was given instructions on symptomatic management, follow up instructions, and return precautions for the emergency department. Patient indicated understanding and was discharged in stable condition. Procedures Nerve Block Nerve Block 1: Time out performed: Yes Local Anesthetic: bupivacaine 0.5% Amount of anesthesia used (mL): 5 Intraoral Nerve Block: superior alveolar Procedure Successful: Yes Patient Tolerated Procedure: well Complications: none Additional Comments: Significant improvement of symptoms after block Critical Care Critical Care Time Critical Care Time: No
[2024-02-21] MEDS: OXYCODONE 5MG IMMEDIATE RELEASE TABLET 5 MG PO (02:00)
--- NOTE | 2024-02-21 02:03 | PC.NURSE ---
Consent signed for nerve block
[2024-02-21] MEDS: BUPIVACAINE 0.5% 10ML VIAL 5 MG IJ (02:06)
--- NOTE | 2024-02-21 02:37 | PC.NURSE ---
Patient had altering medication during procedure and is awaiting ride home at this time. Continuing to monitor patient until transportation arrives.
== END 2024-02-21 05:35 | disposition home or self-care (01) ==
PROVIDERS: Emergency Provider Emergency Medicine; PCP Nurse Practitioner Family
DX: G50.1 Atypical facial pain (principal); F17.200 Nicotine dependence, unspecified, uncomplicated
CPT/HCPCS: 64400; 99283

== ENCOUNTER 2025-04-19 08:14 | Outpatient (CLI) | payer MEDICAID, SELFPAY ==
--- OUTSIDE RECORDS SUMMARY | 2025-04-21 08:17 | XMS_ITS | Clinical Summary ---
Author Organization Healthcare Address [address] [place] [address] Care Team Providers Care Assistant Director Of Nursing Name Role Phone Unavailable Primary Care Provider Unavailabl e Family History Medical History Relation Name Comments Conversions - Other Mother Back pro blem Cardiac disorder Other 1 Stroke Other 2 Dementia Other 3 Heart attack Other 4 Relation Name Status Comments Mother Other 1 Other 2 Other 3 Other 4 Social History Tobacco Use Types Packs/Day Years Used Date Smoking Tobacco: Every Day Alcohol Use Standard Drinks/Week Comments Yes 0 (1 standard drink = 0.6 oz pure alcohol) Alcoholic Drinks/day: Consumes alcohol occasionally Comments Unknown Sex and Gender Information Value Date Recorded Sex Assigned at Not on file Legal Sex Female 6:27 PM EDT Gender Identity Not on file Sexual Orientation Not on file Last Filed Vital Signs Vital Sign Reading Time Taken Comments Blood Pressure 110/84 10/15/2018 10:28 AM EDT Pulse - - Temperature - - Respiratory Rate - - Oxygen Saturation - - Inhaled Oxygen Concentration - - Weight 79.9 kg (176 lb 2.4 oz) 10/15/2018 10:28 AM EDT Height 167.6 cm (5' 6 ) 10/15/2018 10:28 AM EDT Body Mass Index 28.43 10/15/2018 10:28 AM EDT Plan of Treatment Health Maintenance Due Date Last Done Comments [facility]-Depression Screening 1991 [facility]-/Child/Adol SDOH Screenings 1991 [facility]-Varicella Vaccines (1 of 2 - 13+ 2-dose series) 02/10/2004 [facility]- SDOH Screenings 2009 [facility]-Adult SDOH Screenings 2009 [facility]-DTaP,Tdap,and Td Vaccine s (1 - Tdap) 2010 [facility]-Hepatitis B Vaccines (1 of 3 - 19+ 3-dose series) 2010 [facility]-Pap Smear 02/10/2012 HPV Vaccines (1 - 3-dose SCD M series) 2018 [facility]-Cervical Cancer Screening 2021 [facility]-HPV/Cotest 2021 [id number]-03 Vaccine (1 - 20 25-26 season) 2025 [facility]-Influenza Vaccine (#1) 2025 [facility]-Zoster Vaccines (1 of 2) 2041 [facility]-HIB Vaccines Aged Out No longer e ligible based on patient's age to complete this topic [facility]-Hepatitis A Vaccines Aged Out No longer eligible based on patient's age to complete this topic [facility]-IPV Vaccines Aged Out No longer e ligible based on patient's age to complete this topic [facility]-Pneumococcal Vaccine: Pediatrics (0 to 5 Years) and At-Risk Patients (6 to 49 Years) Aged Out No long er eligible based on patient's age to complete this topic [facility]-Rotavirus Vaccines Aged Out No lo nger eligible based on patient's age to complete this topic
== END 2025-04-19 23:59 ==
LOC: LAB.DROPOF 04-21 08:15
PROVIDERS: PCP Nurse Practitioner Family; Visit Provider Nurse Practitioner
DX: J02.9 Acute pharyngitis, unspecified (principal)
CPT/HCPCS: 87070